=== PATIENT | male | born 1935 | race Caucasian/White ===

== ENCOUNTER 2016-12-15 09:38 | Emergency (ER) | payer OTHER ==
--- NOTE | 2016-12-15 09:54 | EDPHY ---
HPI/HX/ROS/PE/MDM Narrative: CHIEF COMPLAINT: Shortness of breath, bloating. HPI: This patient is an anticoagulated 81 y/o male with history of atrial fibrillation arriving today with his complaining of bloated sensation and shortness of breath for the last day. He states he began feeling tachycardic last , a week and a half ago, with a reported pulse of 108. He visited his welding specialist, and EKG at that time showed atrial fibrillation, for which he was prescribed Amiodarone. A subsequent EKG also showed atrial fibrillation so they instructed him to continue Amiodarone until his next appointment, scheduled for tomorrow. Yesterday afternoon, he reports he began experiencing abdominal bloating and shortness of breath, which he describes as "working harder to get air in". He denies pain or pressure in his chest. He states his symptoms made it difficult from him to sleep, and he did not sleep at all last night. He denies changes in symptoms when lying supine vs. sitting up. He denies other associated symptoms including fever, nausea, vomiting, changes in urine output. He denies history of diabetes. He is compliant with his Xarelto. REVIEW OF SYSTEMS: Aside from elements discussed in the HPI, a comprehensive 10- point review of systems was reviewed and is negative. PMH: Atrial fibrillation with two previous cardioversions - Xarelto; prostate cancer post radiation and ; anemia without obvious cause Prior medical records reviewed including admission 09/01/13 for dyspnea. 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 PHYSICAL EXAM: General:Patient is alert, in no acute distress. ENT:Eyes are normal to inspection. ENT inspection normal. Neck: Normal inspection. Full range of motion. Respiratory:No respiratory distress. Breath sounds normal bilaterally. Cardiovascular: Regular rate and rhythm. Strong peripheral pulses. Normal cap refill. Abdomen:The abdomen is nontender to palpation. There are no peritoneal signs. There are normal bowel sounds. Back: Normal to inspection. No tenderness to palpation. Skin: Normal color. No rash. Warm and dry. Extremities: Normal appearance. Full range of motion. Neuro: Oriented x3. Normal motor function. Normal sensory function. ED Course: This patient is an anticoagulated 81 y/o male with history of atrial fibrillation who presents for evaluation of new onset shortness of breath. He was recently evaluated by his welding specialist for atrial fibrillation and started on Amiodarone. His shortness of breath was not concurrent with his sensation of elevated heart rate. His exam today is unremarkable. His EKG shows sinus rhythm , lung sounds are clear, and he is afebrile. He shows no signs of respiratory distress and is not hypoxemic. IV established, labs drawn including CBC, CHEM, PTPTT, BNP, and Troponin. Chest x-ray ordered. Chest x-ray shows mild CHF, new from previous chest x-ray on 09/13/2014. He is not anemic today, hematocrit within normal limits. 10:[address] Rodriguez, welding specialist. Dr. Rodriguez recommends giving the patient 20mg IV Lasix. Continue Amiodarone. The patient should follow up with Dr. Rodriguez at his scheduled appointment tomorrow. I discussed workup and discharge plan with the patient, and he is comfortable going home and seeing Dr. Rodriguez tomorrow. Specific return precautions given. MDM: This patient presents with dyspnea in the setting of recent recurrent atrial fibrillation and amiodarone use. His workup is largely negative with the exception of CHF/fluid overlaod, evidenced by abnormal CXR and elevated BNP. His vitals are normal, he is not hypoxic and he is in no distress. After discussion with Dr. Rodriguez, the patient can be managed as an outpatient and will follow-up with Cardiology tomorrow as scheduled. He is in NSR at this time. I see no evidence for ACS, PE (patient compliant with Xarelto) or PNA. - Data Points Imaging Results: Imaging Impressions Chest X-Ray 12/15/16 09:52 Impression: 1. Mild fluid overload/CHF suspected. Imaging: I viewed and interpreted images myself Laboratory Results: Laboratory Results 12/15/16 10:05 12/15/16 10:05 12/15/16 12/15/16 12/15/16 10:05 10:05 10:05 WBC 7.39 10^3/uL 10^3/uL (3.80-9.50) RBC 4.18 10^6/uL L 10^6/uL (4.40-6.38) Hgb 14.1 g/dL g/dL (13.7-17.5) Hct 40.4 % % (40.0-51.0) MCV 96.7 fL fL (81.5-99.8) MCH 33.7 pg pg (27.9-34.1) MCHC 34.9 g/dL g/dL (32.4-36.7) RDW 12.5 % % (11.5-15.2) Plt Count 131 10^3/uL L 10^3/uL (150-400) MPV 12.3 fL H fL (8.7-11.7) Neut % (Auto) Not Reported Lymph % (Auto) Not Reported [place] % (Auto) Not Reported Eos % (Auto) Not Reported Baso % (Auto) Not Reported Nucleat RBC Rel Count 0.0 % % (0.0-0.2) Absolute Neuts (auto) Not Reported Absolute Lymphs (auto) Not Reported Absolute Monos (auto) Not Reported Absolute Eos (auto) Not Reported Absolute Basos (auto) Not Reported Absolute Nucleated RBC 0.00 10^3/uL 10^3/uL (0-0.01) Immature Gran % Not Reported Seg Neutrophils % 64 % % Lymphocytes % 14 % % Monocytes % 22 % % Immature Gran # Not Reported Absolute Seg Neuts 4.73 10^/uL 10^/uL (1.70-6.50) Absolute Lymphocytes 1.03 10^3/uL 10^3/uL (1.00-3.00) Absolute Monocytes 1.63 10^3/uL H 10^3/uL (0.30-0.80) RBC/WBC/PLT Morphology NORMAL (NORMAL) Atypical Lymphocytes 1+ H Platelet Estimate DECREASED L (ADEQ) Large Platelets PRESENT H Giant Platelets PRESENT H Smear Review By Pending PT 28.9 SEC H SEC (12.0-15.0) INR 2.69 H (0.83-1.16) APTT 45.2 SEC H SEC (23.0-38.0) Sodium 131 mEq/L L mEq/L (134-144) Potassium 5.0 mEq/L mEq/L (3.5-5.2) Chloride 96 mEq/L L mEq/L (97-110) Carbon Dioxide 25 mEq/l mEq/l (22-31) Anion Gap 10 mEq/L mEq/L (8-16) BUN 25 mg/dL H mg/dL (7-23) Creatinine 1.1 mg/dL mg/dL (0.7-1.3) Estimated GFR > 60 Glucose 97 mg/dL mg/dL (70-100) Calcium 9.1 mg/dL mg/dL (8.5-10.4) Troponin I < 0.012 ng/mL ng/mL (0-0.034) NT-Pro-B Natriuret Pep 1330 pg/mL H pg/mL (0-450) Medications Given: Discontinued Medications Furosemide (Lasix Injection) 20 mg IVP EDNOW ONE Stop: 12/15/16 10:53 Last Admin: 12/15/16 11:02 Dose: 20 mg General Time Seen by Provider: 12/15/16 09:40 Initial Vital Signs: Initial Vital Signs Temperature (C) 36.5 C 12/15/16 09:38 Heart Rate 65 12/15/16 09:38 Respiratory Rate 18 12/15/16 09:38 Blood Pressure 110/58 L 12/15/16 09:38 O2 Sat (%) 94 12/15/16 09:38 O2 Delivery Mode Room Air Allergies/Adverse Reactions: oxycodone HCl [From Percocet] Allergy (Mild, Verified 12/15/16 09:40) Vomiting hydrocodone Allergy (Verified 12/15/16 09:40) Home Medications: Medication Instructions Recorded Amiodarone HCl [Pacerone (*)] 200 mg PO 12/15/16 Bystolic 5 mg (*) 2.5 12/15/16 Levothyroxine [Synthroid 150 mcg 150 mcg PO DAILY06 12/15/16 (*)] Omeprazole 20 mg PO 12/15/16 Rivaroxaban [Xarelto 10mg (*)] 20 mg PO DAILY 12/15/16 Departure - Departure Disposition: Home, Routine, Self-Care Clinical Impression: Congestive heart failure Qualifiers: Congestive heart failure type: unspecified congestive heart failure type Congestive heart failure chronicity: acute Qualified Code(s): I50.9 - Heart failure, unspecified Dyspnea Qualifiers: Dyspnea type: shortness of breath Qualified Code(s): R06.02 - Shortness of breath Condition: Good Instructions: Furosemide (By mouth), Heart Failure (ED) Additional Instructions: 1. Continue Amiodarone as directed. 2. Follow up with Dr. Rodriguez as planned tomorrow. 3. Return to the ED for chest pain, fainting, pronounced shortness of breath, or other worsening of condition. Referrals: Karen Campos MD [Primary Care Provider] - As per Instructions René Rodriguez MD [Medical Doctor] - As per Instructions Report Scribed for: Renard Taylor Report Scribed by: Rosy Kilgore Date of Report: 12/15/16 Time of Report: 09:54 Physician Review and Approval Statement: Portions of this note were transcribed by an ED scribe. I personally performed the history, physical exam, and medical decision making; and confirm the accuracy of the information in the transcribed note.
--- NOTE | 2016-12-15 09:58 | CPEKG ---
Heart Rate: 65 RR Interval: 923 P-R Interval: 236 QRSD Interval: 106 QT Interval: 452 QTC Interval: 470 P Sterling: 76 QRS Sterling: 6 T Wave Sterling: 84 EKG Severity - ABNORMAL ECG - EKG Impression: SINUS RHYTHM EKG Impression: ATRIAL PREMATURE COMPLEX EKG Impression: FIRST DEGREE AV BLOCK Electronically Signed By: Renard Taylor 15-Dec-2016 14:46:39
[2016-12-15 10:28] LABS: ANION GAP 10 mEq/L (8-16); CALCIUM 9.1 mg/dL (8.5-10.4); CARBON DIOXIDE 25 mEq/l (22-31); CHLORIDE 96 mEq/L (97-110); CREATININE 1.1 mg/dL (0.7-1.3); GLOMERULAR FILTRATION RATE > 60; GLUCOSE 97 mg/dL (70-100); SODIUM 131 mEq/L (134-144)
[2016-12-15 10:29] LABS: ADD DIFF? YES; ADD MORPH? NO; ADD SCAN? NO; ATYPICAL LYMPHOCYTE FLAG 0 (0-99); FRAGMENT RBC FLAG 0 (0-99); HEMATOCRIT 40.4 % (40.0-51.0); HEMOGLOBIN 14.1 g/dL (13.7-17.5); LEFT SHIFT FLG 0 (0-99); LIPEMIA HEMOLYSIS FLAG 90 (0-99); MEAN CELL HEMOGLOBIN 33.7 pg (27.9-34.1); MEAN CELL HEMOGLOBIN CONCENTR. 34.9 g/dL (32.4-36.7); MEAN CELL VOLUME 96.7 fL (81.5-99.8); MEAN PLATELET VOLUME 12.3 fL (8.7-11.7); PLATELET CLUMPS FLAG 0 (0-99); PLATELET COUNT 131 10^3/uL (150-400); RED BLOOD CELL COUNT 4.18 10^6/uL (4.40-6.38); RED CELL DISTRIBUTION WIDTH 12.5 % (11.5-15.2)
[2016-12-15 10:32] LABS: INR 2.69 (0.83-1.16); PROTIME(PATIENT) 28.9 SEC (12.0-15.0)
[2016-12-15 10:33] LABS: APTT 45.2 SEC (23.0-38.0)
[2016-12-15 10:39] LABS: TROPONIN I < 0.012 ng/mL (0-0.034)
[2016-12-15] MEDS ORDERED: FUROSEMIDE 20 MG/2 ML VIAL IVP ONE (10:52)
[2016-12-15 10:56] LABS: GIANT PLATELETS PRESENT; LARGE PLATELETS PRESENT; PLATELET ESTIMATE DECREASED (ADEQ)
[2016-12-15 11:31] VITALS: BP 119/75; PULSE 59; RESP 16; TEMP 97.3; O2SAT 91
== END 2016-12-15 11:31 | disposition home or self-care (01) ==
DX: I50.9 Heart failure, unspecified (principal); Z79.01 Long term (current) use of anticoagulants; Z85.46 Personal history of malignant neoplasm of prostate
CPT/HCPCS: 96374

== ENCOUNTER 2016-12-17 15:58 | Inpatient (IN) | payer OTHER ==
--- NOTE | 2016-12-17 16:14 | CPEKG ---
Heart Rate: 58 RR Interval: 1034 P-R Interval: 204 QRSD Interval: 100 QT Interval: 448 QTC Interval: 441 P Hobbs: 4 QRS Hobbs: 16 T Wave Hobbs: 67 EKG Severity - NORMAL ECG - EKG Impression: SINUS RHYTHM Electronically Signed By: Rehan Atkinson 17-Dec-2016 21:19:43
--- NOTE | 2016-12-17 16:22 | EDPHY ---
H & P Time Seen by Provider: 12/17/16 16:04 HPI/ROS: Chief complaint. Shortness of breath, atrial fibrillation HPI. 81-year-old male with shortness of breath. The patient was seen in our emergency department 2 days ago on December 15 for shortness of breath. He was diagnosed with congestive heart failure and given IV Lasix. He saw his delivery table feeder yesterday and was continued on Lasix pills. Last 2 nights he is hardly slept because he has shortness of breath especially at night. He does have some chest pain when lying on his left side only. He has some abdominal distention that is new over the last several days. However no abdominal pain, vomiting, diarrhea, constipation. He has decreased appetite. He also has exertional dyspnea that is new over the last week. No swelling to legs ROS Constitutional. no fever/chills, no weakness Eyes. no problems with vision ENT. no sore throat, no nasal drainage Cardiovascular. Left-sided chest pain when lying down Respiratory. Shortness of breath both with exertion and with lying down at night. No cough Abdominal. no abdominal pain, no nausea/vomiting, no diarrhea . no problems urinating MS. no calf pain/swelling, no neck/back pain, no joint pain Skin. no rash Lymph. no swollen glands Neuro. no headache, no dizziness, no difficulty walking or with speech Past Medical/Surgical History: Past medical history atrial fibrillation, prostate cancer, anemia, appendectomy , cardioversion x2, GERD Social History: , nonsmoker, no alcohol Smoking Status: Former smoker Physical Exam: General Appearance: Alert well-developed male mild distress vital signs significant for O2 saturation room air of 90% Eyes: Pupils equal and round no pallor or injection. ENT, Mouth: Mucous membranes are moist. Respiratory: No retractions. Mild rales in both lung bases Cardiovascular: Regular rate and rhythm. Gastrointestinal: Abdomen is soft and nontender, no masses, bowel sounds normal. Neurological: Awake and alert, sensory and motor exams grossly normal. Skin: Warm and dry, no rashes. Musculoskeletal: Neck is supple nontender. Extremities symmetrical, full range of motion. Psychiatric: Patient is oriented X 3, there is no agitation. Constitutional: Initial Vital Signs Temperature (C) 36.6 C 12/17/16 16:01 Heart Rate 63 12/17/16 16:01 Respiratory Rate 16 12/17/16 16:01 Blood Pressure 115/70 12/17/16 16:01 O2 Sat (%) 93 12/17/16 16:01 O2 Delivery Mode Room Air Allergies/Adverse Reactions: oxycodone HCl [From Percocet] Allergy (Mild, Verified 12/17/16 15:59) Vomiting hydrocodone Allergy (Verified 12/17/16 15:59) Home Medications: Medication Instructions Recorded Amiodarone HCl [Pacerone (*)] 200 mg PO BID 12/17/16 Cholecalciferol Vit D3 [Vitamin D3 1,000 units PO DAILY 12/17/16 (*)] Cyanocobalamin [Vitamin B12 (*)] 1,000 mcg PO DAILY 12/17/16 Furosemide [Lasix 20 MG (*)] 20 mg PO DAILY 12/17/16 Levothyroxine [Synthroid 150 mcg 150 mcg PO HS 12/17/16 (*)] Nebivolol HCl [Bystolic] 2.5 mg PO DAILY@1800 12/17/16 Omeprazole [Prilosec 20 mg] 20 mg PO DAILY@0600 12/17/16 Rivaroxaban [Xarelto] 20 mg PO DAILY@1800 12/17/16 Medical Decision Making - Diagnostics EKG Interpretation: EKG interpreted by me shows normal sinus rhythm with normal interval and axis. QRS is normal there is no significant ST elevation or depression. No arrhythmia. The rate is 58 Imaging Results: Imaging Impressions Abdomen X-Ray 12/17/16 16:47 Impression: 1.No evidence of bowel obstruction. 2. Constipation. Chest X-Ray 12/17/16 16:47 Impression: Worsening early CHF. Chest/Thorax CTA 12/17/16 18:14 Impression: 1. No visible pulmonary embolus. 2. Bilateral pleural effusions with peribronchial thickening and interlobular septal thickening and groundglass opacities consistent with CHF. 3. Nonspecific mildly prominent mediastinal and hilar lymph nodes, for which follow-up chest CT is recommended in 3 months. 4. 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 5. Additional findings as above. Findings discussed with Dr. Rehan Atkinson on December 17, 2016 at 1858 hours. Chest x-ray interpreted by me shows worsening CHF CT angiogram chest for shortness of breath and elevated D-dimer shows no evidence of PE. Some reviewed by me and discussed with Dr. Cheng Procedures: IV normal saline, monitor. Review of recent hospital records ED Course/Re-evaluation: On serial evaluations patient is stable. The patient, his , his daughter and I discussed imaging and lab results. We discussed treatment plan including recommendation for admission. They expressed understanding and agreement I consulted and discussed the case with Dr. Mccurdy, hospitalist, who agrees to the admission Differential Diagnosis: This appears to be worsening congestive heart failure . It was probably precipitated by recent episode of atrial fibrillation. He had an elevated D- dimer but no evidence of PE on his chest CT. No evidence for acute coronary syndrome - Data Points Laboratory Results: Laboratory Results 12/17/16 17:26 12/17/16 17:26 12/17/16 12/17/16 12/17/16 17:26 17: 17:26 WBC 6.43 10^3/uL 10^3/uL (3.80-9.50) RBC 3.85 10^6/uL L 10^6/uL (4.40-6.38) Hgb 13.0 g/dL L g/dL (13.7-17.5) Hct 36.7 % L % (40.0-51.0) MCV 95.3 fL fL (81.5-99.8) MCH 33.8 pg pg (27.9-34.1) MCHC 35.4 g/dL g/dL (32.4-36.7) RDW 12.5 % % (11.5-15.2) Plt Count 109 10^3/uL L 10^3/uL (150-400) MPV 12.5 fL H fL (8.7-11.7) Neut % (Auto) Not Reported Lymph % (Auto) Not Reported [place] % (Auto) Not Reported Eos % (Auto) Not Reported Baso % (Auto) Not Reported Nucleat RBC Rel Count 0.0 % % (0.0-0.2) Absolute Neuts (auto) Not Reported Absolute Lymphs (auto) Not Reported Absolute Monos (auto) Not Reported Absolute Eos (auto) Not Reported Absolute Basos (auto) Not Reported Absolute Nucleated RBC 0.00 10^3/uL 10^3/uL (0-0.01) Immature Gran % Not Reported Seg Neutrophils % 61 % % Band Neutrophils % 1 % % Lymphocytes % 14 % % Monocytes % 23 % % Metamyelocytes % 1 % % Immature Gran # Not Reported Absolute Seg Neuts 3.92 10^/uL 10^/uL (1.70-6.50) Absolute Band Neuts 0.06 10^3/uL 10^3/uL (0.00-0.70) Absolute Lymphocytes 0.90 10^3/uL L 10^3/uL (1.00-3.00) Absolute Monocytes 1.48 10^3/uL H 10^3/uL (0.30-0.80) Absolute Metamyelocyte 0.06 10^3/mL H 10^3/mL (0.00-0.00) RBC/WBC/PLT Morphology NORMAL (NORMAL) Platelet Estimate DECREASED L (ADEQ) Smear Review By Pending PT 25.8 SEC H SEC (12.0-15.0) INR 2.33 H (0.83-1.16) D-Dimer 1.05 ug/mLFEU H ug/mLFEU (0.00-0.50) Sodium 126 mEq/L L mEq/L (134-144) Potassium 4.8 mEq/L mEq/L (3.5-5.2) Chloride 92 mEq/L L mEq/L (97-110) Carbon Dioxide 26 mEq/l mEq/l (22-31) Anion Gap 8 mEq/L mEq/L (8-16) BUN 24 mg/dL H mg/dL (7-23) Creatinine 1.0 mg/dL mg/dL (0.7-1.3) Estimated GFR > 60 Glucose 92 mg/dL mg/dL (70-100) Calcium 8.9 mg/dL mg/dL (8.5-10.4) Troponin I < 0.012 ng/mL ng/mL (0-0.034) NT-Pro-B Natriuret Pep 2260 pg/mL H pg/mL (0-450) Departure - Departure Disposition: [facility] Clinical Impression: Congestive heart failure Qualifiers: Congestive heart failure type: systolic Congestive heart failure chronicity: acute Qualified Code(s): I50.21 - Acute systolic (congestive) heart failure Condition: Fair
[2016-12-17 17:33] LABS: ADD DIFF? YES; ADD MORPH? NO; ADD SCAN? NO; ATYPICAL LYMPHOCYTE FLAG 0 (0-99); FRAGMENT RBC FLAG 0 (0-99); HEMATOCRIT 36.7 % (40.0-51.0); LEFT SHIFT FLG 0 (0-99); LIPEMIA HEMOLYSIS FLAG 90 (0-99); MEAN CELL HEMOGLOBIN 33.8 pg (27.9-34.1); MEAN CELL HEMOGLOBIN CONCENTR. 35.4 g/dL (32.4-36.7); MEAN CELL VOLUME 95.3 fL (81.5-99.8); MEAN PLATELET VOLUME 12.5 fL (8.7-11.7); PLATELET CLUMPS FLAG 0 (0-99); PLATELET COUNT 109 10^3/uL (150-400); RED BLOOD CELL COUNT 3.85 10^6/uL (4.40-6.38); RED CELL DISTRIBUTION WIDTH 12.5 % (11.5-15.2)
[2016-12-17 17:48] LABS: INR 2.33 (0.83-1.16); PROTIME(PATIENT) 25.8 SEC (12.0-15.0)
[2016-12-17 17:57] LABS: ANION GAP 8 mEq/L (8-16); CALCIUM 8.9 mg/dL (8.5-10.4); CARBON DIOXIDE 26 mEq/l (22-31); CHLORIDE 92 mEq/L (97-110); GLOMERULAR FILTRATION RATE > 60; GLUCOSE 92 mg/dL (70-100); POTASSIUM 4.8 mEq/L (3.5-5.2); SODIUM 126 mEq/L (134-144)
[2016-12-17 18:09] LABS: PLATELET ESTIMATE DECREASED (ADEQ)
[2016-12-17 18:10] LABS: TROPONIN I < 0.012 ng/mL (0-0.034)
[2016-12-17] MEDS ORDERED: IOPAMIDOL (ISOVUE 370) 100 ML BTL IV ONE (18:20)
--- NOTE | 2016-12-17 21:41 | PDGENHP ---
History and Physical - Chief Complaint shortness of breath and bloating - History of Present Illness 81 y/o male with history of atrial fibrillation presents to the ED today with shortness of breath and abdominal distention of 2 days duration. He was last seen in the ED 2 days ago on December 15 for shortness of breath and tachycardia , at that time he received IV Lasix with moderate relief. He is followed by Dr. Rodriguez at [facility] cardiology. Over the past 2 days he noted an abdominal distension and an increase in shortness of breath especially while attempting to lay flat at night. He now uses 2 pillows in an attempt to sleep, but he has not been able to in the last 2 days. He denies any chest pain or palpitations. He also states that he has left sided abdominal pain which he attributes to the distention. He notes that he has developed a dry cough as well. He admits to decreased appetite due to feeling of fullness. Patient has been tapering off Amiodarone, however he does not recall the dosages he was taking and believes he may have taken more than he was supposed to. History Information - Allergies/Home Medication List Allergies/Adverse Reactions: oxycodone HCl [From Percocet] Allergy (Mild, Verified 12/17/16 15:59) Vomiting hydrocodone Allergy (Verified 12/17/16 15:59) Home Medications: Amiodarone HCl [Pacerone (*)] 200 mg PO BID 12/17/16 [Last Taken 12/17/16 10:00 200mg] Cholecalciferol Vit D3 [Vitamin D3 (*)] 1,000 units PO DAILY 12/17/16 [Last Taken Unknown] Cyanocobalamin [Vitamin B12 (*)] 1,000 mcg PO DAILY 12/17/16 [Last Taken Unknown ] Furosemide [Lasix 20 MG (*)] 20 mg PO DAILY 12/17/16 [Last Taken 12/17/16 10:00] Levothyroxine [Synthroid 150 mcg (*)] 150 mcg PO HS 12/17/16 [Last Taken ] Nebivolol HCl [Bystolic] 2.5 mg PO DAILY@1800 12/17/16 [Last Taken 12/16/16 t-1] Omeprazole [Prilosec 20 mg] 20 mg PO DAILY@0600 12/17/16 [Last Taken 12/17/16 06 :30] Rivaroxaban [Xarelto] 20 mg PO DAILY@1800 12/17/16 [Last Taken 12/16/16] I have personally reviewed and updated: family history, medical history, social history, surgical history Past Medical History: afib, prostate cancer, anemia, cardioversion, GERD, hypothyroid - Surgical History Additional surgical history: appendectomy, right shoulder surgery with plate, sesimoid bone removal from feet BL - Social History Smoking Status: Former smoker Alcohol Use: None Drug Use: None Review of Systems ROS: 10pt was reviewed & negative except for what was stated in HPI & below Physical Exam Temp Pulse Resp BP Pulse Ox 36.7 C 57 L 19 125/44 H 91 L 12/17/16 20:25 12/17/16 20:25 12/17/16 20:25 12/17/16 20:25 12/17/16 20:25 O2 (L/minute) 2 Constitutional: no apparent distress, appears nourished, not in pain Eyes: PERRL, anicteric sclera, EOMI Ears, Nose, Mouth, Throat: moist mucous membranes, hearing normal, ears appear normal, no oral mucosal ulcers Cardiovascular: regular rate and rhythym, JVD, edema (bilat ankles (trace)), No irregularly irregular, No tachycardia, No bradycardia Respiratory: no respiratory distress, reduced air movement, inspiratory crackles , No expiratory wheeze, No rhonchi Gastrointestinal: normoactive bowel sounds, soft, non-tender abdomen, no palpable masses, distension Genitourinary: no bladder fullness, no bladder tenderness Skin: warm, normal color, no rashes or abrasions, no fluctuance, no induration, No mottled Musculoskeletal: full muscle strength, no muscle tenderness, normal joint ROM, no joint effusions Neurologic: AAOx3, CN II-XII Intact, No facial droop Psychiatric: interacting appropriately, not anxious, not encephalopathic, thought process linear Lymph, Heme, Immunologic: no cervical LAD, no supraclavicular LAD Lab Data & Imaging Review 12/17/16 17:26 12/17/16 17:26 WBC 6.43 10^3/uL (3.80-9.50) 12/17/16 17: RBC 3.85 10^6/uL (4.40-6.38) L 12/17/16 17:26 Hgb 13.0 g/dL (13.7-17.5) L 12/17/16 17:26 Hct 36.7 % (40.0-51.0) L 12/17/16 17:26 MCV 95.3 fL (81.5-99.8) 12/17/16 17:26 MCH 33.8 pg (27.9-34.1) 12/17/16 17: MCHC 35.4 g/dL (32.4-36.7) 12/17/16 17: RDW 12.5 % (11.5-15.2) 12/17/16 17: Plt Count 109 10^3/uL (150-400) L 12/17/16 17: MPV 12.5 fL (8.7-11.7) H 12/17/16 17:26 Neut % (Auto) Not Reported 12/17/16 17:26 Lymph % (Auto) Not Reported 12/17/16 17:26 [place] % (Auto) Not Reported 12/17/16 17:26 Eos % (Auto) Not Reported 12/17/16 17:26 Baso % (Auto) Not Reported 12/17/16 17:26 Nucleat RBC Rel Count 0.0 % (0.0-0.2) 12/17/16 17:26 Absolute Neuts (auto) Not Reported 12/17/16 17:26 Absolute Lymphs (auto) Not Reported 12/17/16 17:26 Absolute Monos (auto) Not Reported 12/17/16 17:26 Absolute Eos (auto) Not Reported 12/17/16 17:26 Absolute Basos (auto) Not Reported 12/17/16 17:26 Absolute Nucleated RBC 0.00 10^3/uL (0-0.01) 12/17/16 17:26 Immature Gran % Not Reported 12/17/16 17:26 Seg Neutrophils % 61 % 12/17/16 17:26 Band Neutrophils % 1 % 12/17/16 17:26 Lymphocytes % 14 % 12/17/16 17:26 Monocytes % 23 % 12/17/16 17:26 Metamyelocytes % 1 % 12/17/16 17:26 Immature Gran # Not Reported 12/17/16 17:26 Absolute Seg Neuts 3.92 10^/uL (1.70-6.50) 12/17/16 17:26 Absolute Band Neuts 0.06 10^3/uL (0.00-0.70) 12/17/16 17:26 Absolute Lymphocytes 0.90 10^3/uL (1.00-3.00) L 12/17/16 17:26 Absolute Monocytes 1.48 10^3/uL (0.30-0.80) H 12/17/16 17:26 Absolute Metamyelocyte 0.06 10^3/mL (0.00-0.00) H 12/17/16 17:26 RBC/WBC/PLT Morphology NORMAL (NORMAL) 12/17/16 17:26 Platelet Estimate DECREASED (ADEQ) L 12/17/16 17:26 PT 25.8 SEC (12.0-15.0) H 12/17/16 17:26 INR 2.33 (0.83-1.16) H 12/17/16 17:26 D-Dimer 1.05 ug/mLFEU (0.00-0.50) H 12/17/16 17:26 Sodium 126 mEq/L (134-144) L 12/17/16 17:26 Potassium 4.8 mEq/L (3.5-5.2) 12/17/16 17:26 Chloride 92 mEq/L (97-110) L 12/17/16 17:26 Carbon Dioxide 26 mEq/l (22-31) 12/17/16 17:26 Anion Gap 8 mEq/L (8-16) 12/17/16 17:26 BUN 24 mg/dL (7-23) H 12/17/16 17:26 Creatinine 1.0 mg/dL (0.7-1.3) 12/17/16 17:26 Estimated GFR > 60 12/17/16 17:26 Glucose 92 mg/dL (70-100) 12/17/16 17:26 Calcium 8.9 mg/dL (8.5-10.4) 12/17/16 17:26 Troponin I < 0.012 ng/mL (0-0.034) 12/17/16 17:26 NT-Pro-B Natriuret Pep 2260 pg/mL (0-450) H 12/17/16 17:26 Imaging Review: cta chest 1. No visible pulmonary embolus. 2. Bilateral pleural effusions with peribronchial thickening and interlobular septal thickening and groundglass opacities consistent with CHF. 3. Nonspecific mildly prominent mediastinal and hilar lymph nodes, for which follow-up chest CT is recommended in 3 months. 4. 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 Visualized and Interpreted Chest x-ray results: Yes Chest X-Ray results: effusion, other (pulm congestion c/w chf) Visualized and Interpreted EKG results: Yes EKG Interpretation: Positive for: normal sinsus rhythm (58 bpm). Negative for: ST elevation, ST depression Assessment & Plan Assessment: 81 y/o with history of Afib presenting with #acute heart failure (suspect diastolic in etiology) -IV lasix -Dr. Rodriguez to consult in the morning -will defer repeating an echo since the patient tells me he has one recently #hypervolemic hyponatremia -fluid restrict and monitor #suspected ascites likely cardiac in etiology -send LFTs #hilar lymphadenopathy on chest ct -recommend 3 month followup
[2016-12-17] MEDS: AMIODARONE HCL 200 MG TAB PO SCH (22:54)
[2016-12-17] MEDS: FUROSEMIDE 20 MG/2 ML VIAL IVP SCH (22:55)
[2016-12-17] MEDS: LEVOTHYROXINE 150 MCG TAB PO SCH (22:55)
[2016-12-18 05:12] LABS: ADD DIFF? YES; ADD MORPH? NO; ADD SCAN? NO; ATYPICAL LYMPHOCYTE FLAG 0 (0-99); FRAGMENT RBC FLAG 0 (0-99); HEMATOCRIT 35.6 % (40.0-51.0); HEMOGLOBIN 12.6 g/dL (13.7-17.5); LEFT SHIFT FLG 0 (0-99); LIPEMIA HEMOLYSIS FLAG 90 (0-99); MEAN CELL HEMOGLOBIN 33.5 pg (27.9-34.1); MEAN CELL HEMOGLOBIN CONCENTR. 35.4 g/dL (32.4-36.7); MEAN CELL VOLUME 94.7 fL (81.5-99.8); MEAN PLATELET VOLUME 12.4 fL (8.7-11.7); PLATELET CLUMPS FLAG 0 (0-99); PLATELET COUNT 112 10^3/uL (150-400); RED BLOOD CELL COUNT 3.76 10^6/uL (4.40-6.38); RED CELL DISTRIBUTION WIDTH 12.6 % (11.5-15.2)
[2016-12-18 05:26] LABS: ALANINE AMINOTRANSFERASE 84 IU/L (21-72); ALBUMIN 3.6 g/dL (3.5-5.0); ALKALINE PHOSPHATASE 81 IU/L (38-126); ANION GAP 11 mEq/L (8-16); ASPARTATE AMINOTRANSFERASE 41 IU/L (17-59); BILIRUBIN,TOTAL 1.6 mg/dL (0.1-1.4); CALCIUM 8.5 mg/dL (8.5-10.4); CARBON DIOXIDE 26 mEq/l (22-31); CHLORIDE 96 mEq/L (97-110); CREATININE 0.9 mg/dL (0.7-1.3); GLOMERULAR FILTRATION RATE > 60; GLUCOSE 85 mg/dL (70-100); SODIUM 133 mEq/L (134-144)
[2016-12-18 05:55] LABS: LARGE PLATELETS PRESENT; PLATELET ESTIMATE DECREASED (ADEQ)
[2016-12-18] MEDS: PANTOPRAZOLE SODIUM 40 MG TAB PO SCH (07:55)
[2016-12-18] MEDS: AMIODARONE HCL 200 MG TAB PO SCH ×2 (09:13→21:19)
[2016-12-18] MEDS: CYANO/VITAMIN B12 1000 MCG TAB PO SCH (09:13)
[2016-12-18] MEDS: FUROSEMIDE 20 MG/2 ML VIAL IVP SCH ×2 (09:13→14:52)
[2016-12-18] MEDS: CHOLECALCIFEROL VIT D3 1,000 UNITS TAB PO SCH (09:13)
--- NOTE | 2016-12-18 12:13 | GCON ---
[f rep st] CONSULTATION CARDIOLOGY CONSULTATION. DATE OF CONSULTATION: 12/18/2016 REFERRING PHYSICIAN: Johnathan Mccurdy DO REASON FOR CONSULTATION: New onset of congestive heart failure, atrial fibrillation, and lconxqmz-ur-wsgozz aortic insufficiency. HISTORY OF PRESENT ILLNESS: The patient is a pleasant 81-year-old gentleman well-known to my cardiology practice at [facility]. He had presented to our office last Friday with complaints of an irregular heartbeat. He was found to be in atrial fibrillation with rapid ventricular response. He does have a known history of paroxysmal atrial fibrillation, and remains chronically anticoagulated with Xarelto 20 mg daily. He was on rate control medication with beta inge of Bystolic 2.5 mg once daily. He was initiated on amiodarone 400 mg p.o. b.i.d. He ultimately converted to sinus rhythm. Over the course of the weekend, he noticed increasing shortness of breath, dyspnea, as well as paroxysmal nocturnal dyspnea and orthopnea, as well as abdominal bloating and fullness, prompting him to seek medical attention. In the emergency room, he was found to have evidence of some small effusions and an elevated BNP. He was given IV dose of Lasix, felt better, and was discharged home with plan to follow up in our office. He was seen in our office and was feeling well on Friday December 16, 2016. However, by Friday he began noticing increasing abdominal fullness and bloating, prompting him to contact our office, at which point, we directed him to the emergency room for further evaluation. He did undergo an echocardiogram in my office on FridayDecember 16. Echocardiogram demonstrated normal left ventricular function with LVEF of 60% to 65%. There was increase in left ventricular cavity dilatation, and his LV cavity is now at the upper limits of normal, with left ventricular internal diastolic dimension of 5.5 cm. His aortic insufficiency was moderate and is now cnybygqh-wp-rizujf. He does have rnsh-tr-qopynvsb mitral regurgitation and moderate pulmonary hypertension, with RV systolic pressure between 50 and 60 mmHg. His inferior vena cava was dilated at 2.8 cm without collapse, consistent with elevated right atrial pressure of 15 mmHg. He also had a pericardial effusion, which was new compared to previous echo in June 2016. There is no evidence of tamponade. His ascending aorta was dilated at 4.1 cm , which is essentially unchanged compared to the previous study. The patient presented to the ER yesterday afternoon, and was admitted to the hospitalist service. He has undergone workup including abdominal films demonstrating no acute findings. Chest x-ray demonstrated increasing interstitial markings and evidence of increasing pulmonary edema, as compared to previous chest x-ray done on November. He underwent CT of the chest secondary to elevated D-dimer. He has been compliant with his Xarelto. There was no evidence of PE, but did demonstrate bilateral pleural effusions and peribronchial thickening, and ascending aorta with consistent with our echocardiogram at 4.1 cm. Telemetry demonstrates maintenance of sinus rhythm, and he is currently at 57 beats per minute, resting comfortably. He is currently on amiodarone 200 mg p.o. b.i.d. Currently, at the time of my exam, he is resting comfortably without complaint. PAST MEDICAL HISTORY: 1. Paroxysmal atrial fibrillation. 2. Moderate ascending aortic root dilatation at 4.1 cm. 3. Pfgjttwd-xh-mkkvmm aortic insufficiency, moderate pulmonary hypertension. 4. Hypothyroidism. 5. Status post prostate cancer. 6. Iron-deficiency anemia. MEDICATIONS ON ADMISSION: 1. Xarelto 20 mg once daily. 2. Bystolic 2.5 mg daily. 3. Amiodarone 200 mg p.o. b.i.d. 4. Levothyroxine 150 mcg daily. 5. Furosemide 20 mg daily. 6. Prilosec 20 mg daily. 7. B12 1000 units daily. ALLERGIES TO MEDICATIONS: Oxycodone and hydrocodone. SOCIAL HISTORY: He is a nonsmoker. He is physically active. He does have a remote history of smoking. He smoked for approximately 12 years, quit in August 1968. Drinks approximately 2 alcoholic beverages per day. FAMILY HISTORY: Noncontributory. EXAM: GENERAL: He is awake, alert, oriented, appropriate, in no apparent distress. VITAL SIGNS: Blood pressure is 106/61; heart rate is 59, in sinus rhythm; respiratory rate of 20; oxygen saturation 91% on 2 L. NECK: There is no evidence of JVP or carotid bruits. LUNGS: Clear to auscultation bilaterally. CARDIAC: S1, S2. Regular. He does have a 1/6 soft diastolic murmur at the right upper sternal border. ABDOMEN: Soft, nontender. There is no evidence of ascites. Normal bowel sounds. EXTREMITIES: He has no evidence of cyanosis, clubbing, or edema. DATA: White blood cell count 5.91, hemoglobin 12.6, hematocrit 35.6, platelet count 112. D-dimer was elevated at 1.05. Sodium 133, potassium 4.0, chloride 96, bicarb 26, BUN 20, creatinine 0.9. AST 41, ALT 84, alkaline phosphatase 81. Troponin negative at less than 0.012. I-mkkovtyc-dtfDWP 2260. TSH 0.600. ECG demonstrates sinus rhythm at 58 beats per minute, with normal intervals, normal axis. Echocardiogram done in my office yesterday demonstrates LVEF of 60% to 65%. Borderline dilated left ventricular cavity at 5.5 cm. Pxohsvst-nu-wasgev aortic insufficiency. Tjvr-zk-qnxpfqtw mitral insufficiency. Moderate pulmonary hypertension with RV systolic pressure of 50 to 60 mmHg. Mild tricuspid regurgitation. Dilated IVC at 2.8 cm without collapse, consistent with right atrial pressure of at least 15 mmHg. Small pericardial effusion without evidence of tamponade. CONCLUSION: 1. New onset of congestive heart failure, with preserved left ventricular function. 2. Opyisycn-mt-ofdfyy aortic insufficiency. 3. Atrial fibrillation with rapid ventricular response. 4. Bilateral pleural effusions. 5. Increased abdominal distention and bloating. The patient is a pleasant 81-year-old gentleman, who presented last week with atrial fibrillation with rapid ventricular response that converted to sinus rhythm with amiodarone loading, who has continued to have complaints of paroxysmal nocturnal dyspnea, orthopnea, shortness of breath, dyspnea on exertion, and abdominal bloating without evidence of lower extremity edema. I think these findings may be secondary to an episode of atrial fibrillation with rapid ventricular response coupled with progression of his aortic insufficiency , which is now exvbwrlm-ma-wqtkck. His echocardiographic findings are consistent with volume overload. RECOMMENDATIONS: 1. Continue diuretic therapy. 2. Continue amiodarone 200 mg p.o. b.i.d. 3. Continue Xarelto 20 mg daily 4. Recommend patient remains in hospital for another 24 hours for increased diuresis. 5. Will require outpatient nuclear stress test once euvolemic and asymptomatic. 6. Will continue to follow along with the patient's care. 45 minutes spent coordinating care. /[id number]/MODL MTDD
--- NOTE | 2016-12-18 14:23 | HOSPPROG ---
Hospitalist Progress Note Assessment/Plan: # acute diastolic HF- has responded well to IV diuresis overnight- preserved EF on recent outpt ECHO- oxygen saturations 87% on RA CT chest (personally reviewed and interpreted) shows bilateral effusions and pulmonary edema- creatinine 0.9 this am - continue IV lasix today - cont BP control # Atrial fibrillation with RVR - pt converted to sinus overnight - cont Pradaxa - cont amiodarone # HTN -controlled on Bystolic # Hypothyroidism - cont synthroid # proph - on pradaxa # diet - cont cardiac # dispo - > 2MN as will require ongoing IV diuresis I have discussed the case with Cardiology - we will continue IV diuresis today - pt responding well. Subjective: breathing so miuch more comfortable Objective: Vital Signs Temp Pulse Resp BP Pulse Ox 36.5 C 60 16 116/60 91 L 12/18/16 11:52 12/18/16 11:52 12/18/16 11:52 12/18/16 11:52 12/18/16 11:52 Laboratory Results 12/18/16 04:25 12/18/16 04:25 12/17/16 12/18/16 12/19/16 05:59 05:59 05:59 Intake Total 640 Output Total 2100 1350 Balance -1460 -1350 PT 25.8 SEC (12.0-15.0) H 12/17/16 17:26 INR 2.33 (0.83-1.16) H 12/17/16 17:26 - Physical Exam Constitutional: appears nourished Eyes: anicteric sclera Ears, Nose, Mouth, Throat: moist mucous membranes Cardiovascular: regular rate and rhythym, systolic murmur Respiratory: no respiratory distress, inspiratory crackles Gastrointestinal: normoactive bowel sounds, soft, non-tender abdomen Genitourinary: no bladder fullness Skin: warm, normal color Musculoskeletal: No asymmetric calves Neurologic: AAOx3 Psychiatric: interacting appropriately, not anxious Lymph, Heme, Immunologic: no cervical LAD ICD10 Worksheet Patient Problems: Problems Problem Status Onset Congestive heart failure Acute Anemia Acute
[2016-12-18] MEDS: NEBIVOLOL HCL 5 MG TAB PO SCH (17:23)
[2016-12-18] MEDS: RIVAROXABAN 20 MG TAB PO SCH (17:24)
[2016-12-18] MEDS: LEVOTHYROXINE 150 MCG TAB PO SCH (21:19)
[2016-12-19 05:26] LABS: ANION GAP 8 mEq/L (8-16); CALCIUM 8.5 mg/dL (8.5-10.4); CARBON DIOXIDE 28 mEq/l (22-31); CHLORIDE 96 mEq/L (97-110); CREATININE 0.9 mg/dL (0.7-1.3); GLOMERULAR FILTRATION RATE > 60; GLUCOSE 86 mg/dL (70-100); POTASSIUM 3.7 mEq/L (3.5-5.2); SODIUM 132 mEq/L (134-144)
[2016-12-19] MEDS: PANTOPRAZOLE SODIUM 40 MG TAB PO SCH (07:32)
--- NOTE | 2016-12-19 08:13 | SOAPPROG ---
SOAP Progress Note Assessment/Plan: Assessment: Cardiology ([facility]) 1. Acute diastolic CHF exacerbation in the setting of recent afib and apparent worsening AI. Patient has diuresed net neg 2895 ml since admission on furosemide 20 mg ivp bid. Weight is down 3.6 kg. 2. Paroxysmal atrial fibrillation s/p 4-5 day bout preceding hospitalization. Patient remains on amiodarone. He is chronically anticoagulated with Xarelto. He has maintained NSR throughout the hospitalization. 3. Progressive aortic valve insufficiency, now moderate-severe, with LVEDD at ULN. Unclear if this is cause or effect of fluid overload. 4. New anemia, possibly hemodilution, however has had issues with anemia in the past requiring iron supplementation. 5. Hypothyroidism. 6. Hyponatremia. Plan: 1. Start KlorCon 20 mEq/d. 2. Continue free water restriction of 1500 ml/d. 3. Continue Lasix ivp this am however if discharged would transition to oral 40 mg once daily as patient is nearing euvolemia. 4. Continue amiodarone 200 mg bid, Xarelto 20 mg/d, and Bystolic 2.5 mg/d. 5. Close outpatient follow up. 12/19/16 08:44 Subjective: Feeling much better. Quality of breath and abdominal distention are significantly improved. He continues to have low sats on supplemental O2. Objective: Vital Signs Temp Pulse Resp BP Pulse Ox 35.6 C L 58 L 14 92/57 L 92 12/19/16 04:00 12/19/16 04:00 12/19/16 04:00 12/19/16 04:00 12/19/16 04:00 Laboratory Results 12/19/16 04:27 12/18/16 12/19/16 12/20/16 05:59 05:59 05:59 Intake Total 1610 Output Total 1145 Balance 465 PT 25.8 SEC (12.0-15.0) H 12/17/16 17:26 INR 2.33 (0.83-1.16) H 12/17/16 17:26 - Time Spent With Patient Time Spent With Patient: 40 minutes spent coordinating care, physical exam, and documentation. Physical Exam - Physical Exam General Appearance: WD/WN, alert, no apparent distress Respiratory: chest non-tender, normal breath sounds, crackles Cardiac/Chest: normal peripheral pulses, regular rate, rhythm Peripheral Pulses: 2+: dorsalis-pedis (R), dorsalis-pedis (L) Abdomen: normal bowel sounds, non-tender, soft Extremities: No swelling Neuro/Psych: no motor/sensory deficits, alert, normal mood/affect, oriented x 3 ICD10 Worksheet Patient Problems: Problems Problem Status Onset Chronic Disease Mgmt/Transitional Care Acute Congestive heart failure Acute Anemia Acute
[2016-12-19] MEDS: FUROSEMIDE 20 MG/2 ML VIAL IVP SCH ×2 (08:33→14:59)
[2016-12-19] MEDS: AMIODARONE HCL 200 MG TAB PO SCH ×2 (08:33→20:49)
[2016-12-19] MEDS: CYANO/VITAMIN B12 1000 MCG TAB PO SCH (08:33)
[2016-12-19] MEDS: CHOLECALCIFEROL VIT D3 1,000 UNITS TAB PO SCH (08:39)
[2016-12-19] MEDS: POTASSIUM CL 20 MEQ TAB PO SCH (09:32)
[2016-12-19] MEDS ORDERED: POLYETHYLENE GLYCOL 3350 17 GM PKT PO ONE (12:00)
--- NOTE | 2016-12-19 16:19 | HOSPPROG ---
Hospitalist Progress Note Assessment/Plan: * Acute on chronic diastolic CHF -still needs more diuresis - continue IV lasix * Afib -amiodarone, Xarelto * HTN -Bystolic * Mediastinal/hilar LAD -follow-up CT chest 3 months Subjective: no complaints. Objective: Vital Signs Temp Pulse Resp BP Pulse Ox 34.9 C L 55 L 18 122/62 H 94 12/19/16 12:00 12/19/16 12:00 12/19/16 12:00 12/19/16 12:00 12/19/16 12:00 Laboratory Results 12/19/16 04:27 12/18/16 12/19/16 12/20/16 05:59 05:59 05:59 Intake Total 1610 200 Output Total 1145 1225 Balance 465 -1025 PT 25.8 SEC (12.0-15.0) H 12/17/16 17:26 INR 2.33 (0.83-1.16) H 12/17/16 17:26 d/w Martinez Carrillo employment consultant - one more day inpatient for diuresis CTA chest - no PE, + CHF, + LAD - Physical Exam Constitutional: no apparent distress, appears nourished, not in pain Cardiovascular: regular rate and rhythym, no murmur, rub, or gallop Respiratory: no respiratory distress, no rales or rhonchi, clear to auscultation Gastrointestinal: normoactive bowel sounds, soft, non-tender abdomen, no palpable masses Skin: no rashes or abrasions, no fluctuance, no induration Neurologic: AAOx3, sensation intact bilaterally Psychiatric: interacting appropriately, not anxious, not encephalopathic, thought process linear ICD10 Worksheet Patient Problems: Problems Problem Status Onset Chronic Disease [facility]/Transitional Care Acute Congestive heart failure Acute Anemia Acute
[2016-12-19] MEDS: NEBIVOLOL HCL 5 MG TAB PO SCH (17:45)
[2016-12-19] MEDS: RIVAROXABAN 20 MG TAB PO SCH (17:46)
[2016-12-19] MEDS: LEVOTHYROXINE 150 MCG TAB PO SCH (20:49)
[2016-12-20 05:58] LABS: ANION GAP 10 mEq/L (8-16); CALCIUM 8.4 mg/dL (8.5-10.4); CARBON DIOXIDE 28 mEq/l (22-31); CHLORIDE 97 mEq/L (97-110); GLOMERULAR FILTRATION RATE > 60; GLUCOSE 86 mg/dL (70-100); SODIUM 135 mEq/L (134-144)
--- NOTE | 2016-12-20 08:47 | PDCARPN ---
Cardiology Progress Note Chief Complaint: Mr. Brooke is feeling well. No complaints. Remains in NSR on Tele. BP is low but no complaints. He is neg over 3.4 L and weight is down over 3 Kg. No complaints of adominal fullness. No edema. Assessment/Plan: Assessment: 1. AFib with RVR, now in NSR with Amiodarone 2. Moderate to severe AI with LV dimension at upper limit normal 3. Diastolic CHF 4. Hyponatremia 5. Anemia Plan: 1. I thnk he is stable for discharge home 2. Home with Lasix 40 mg daily 3. Decrease Amiodarone to 200 mg daily 4. Continue Eliquis 5 mg bid 5. Continue Bystolic 2.5 mg daily 6. Free water restriction to 1.5 L 7. I am arranging Follow up with me for next week with Lab work prior to appt. 12/20/16 08:46 12/20/16 08:47 Time Spent With Patient: 20 min Objective: Vital Signs (8 Hrs) Temp Pulse Resp BP Pulse Ox 12/20/16 08:00 36.6 C 52 L 19 91/42 L 92 12/20/16 03:32 36.3 C 50 L 18 98/51 L 90 L Intake/Output (24 Hrs) 12/19/16 12/20/16 12/21/16 05:59 05:59 05:59 Intake Total 1610 1300 Output Total 1145 1900 Balance 465 -600 Intake: Oral (ml) 1610 1300 Output: Urine (ml) 1145 1900 Toilet 325 Urinal 1145 1575 Other: Weight 75.1 kg 73.8 kg Intake Quantity Yes Yes Sufficient Number of Voids Toilet 1 Urinal 2 Number of Stools Toilet 1 Result Diagrams: 12/18/16 04:25 12/20/16 04:22 - Physical Exam Constitutional: WDWN Ears, Nose, Mouth, Throat: moist mucous membranes Cardiovascular: regular rate and rhythm Respiratory: clear to auscultate bilat Gastrointestinal: normoactive bowel sounds Musculoskeletal: no muscular tenderness Neurologic: AAOx3, CN II-XII grossly intact Psychiatric: cooperative, interactive, following commands ICD10 Worksheet Patient Problems: Problems Problem Status Onset Chronic Disease Mgmt/Transitional Care Acute Congestive heart failure Acute Anemia Acute
[2016-12-20] MEDS: CYANO/VITAMIN B12 1000 MCG TAB PO SCH (09:02)
[2016-12-20] MEDS: AMIODARONE HCL 200 MG TAB PO SCH (09:02)
[2016-12-20] MEDS: PANTOPRAZOLE SODIUM 40 MG TAB PO SCH (09:02)
[2016-12-20] MEDS: FUROSEMIDE 20 MG/2 ML VIAL IVP SCH ×2 (09:02→10:15)
[2016-12-20] MEDS: CHOLECALCIFEROL VIT D3 1,000 UNITS TAB PO SCH (09:02)
[2016-12-20] MEDS: POTASSIUM CL 20 MEQ TAB PO SCH (09:02)
[2016-12-20 12:10] VITALS: BP 99/60; PULSE 61; RESP 18; TEMP 97; O2SAT 92
--- NOTE | 2016-12-20 16:56 | GDS ---
[f rep st] DISCHARGE SUMMARY DISCHARGE DIAGNOSES: 1. Acute on chronic diastolic congestive heart failure. 2. Atrial fibrillation. 3. Hypertension. 4. Mediastinal and hilar lymphadenopathy. HISTORY: The patient is an 81-year-old male who presented with shortness of breath and abdominal di stention, especially while lying flat at night. CT angiogram of the chest was negative for PE but m ore consistent with congestive heart failure. He had a recent outpatient echocardiogram that showed diastolic dysfunction. He was diuresed with IV Lasix and did well. We were able to wean him off o xygen at the time of hospital discharge. Lasix will be switched to oral 40 mg p.o. daily. DISCHARGE MEDICATIONS: Please see computer's record for full detailed list. 1. New medication: Lasix 40 mg p.o. daily. 2. Potassium 20 mEq p.o. daily. 3. Amiodarone decreased to 200 mg p.o. daily. ADDITIONAL DISCHARGE INSTRUCTIONS: 1. Follow up CT scan of the chest in 3 months for enlarged mediastinal and hilar lymphadenopathy fo llowup. 2. CHF education, including daily weights. 3. Follow up with Dr. René Rodriguez of Cardiology as directed. Greater than 30 minutes' time was spent arranging this discharge. Patient seen and examined by me david sanchez the day of discharge. /[id number]/MODL
== END 2016-12-20 12:35 | disposition home or self-care (01) | DRG 292 ==
LOC: INTOOBSV 18:18 → F2W 20:21 → OBSVTOIN 12-18 15:36
PROVIDERS: ADMIT Family Medicine; ATTEND Family Medicine
DX: I50.33 Acute on chronic diastolic (congestive) heart failure (principal); E87.1 Hypo-osmolality and hyponatremia; I48.0 Paroxysmal atrial fibrillation; R59.1 Generalized enlarged lymph nodes; I35.1 Nonrheumatic aortic (valve) insufficiency; D64.9 Anemia, unspecified; E03.9 Hypothyroidism, unspecified; I10 Essential (primary) hypertension; Z79.01 Long term (current) use of anticoagulants; Z85.46 Personal history of malignant neoplasm of prostate; Z87.891 Personal history of nicotine dependence
CPT/HCPCS: G0378; Q9967

== ENCOUNTER → 2017-04-08 | Outpatient (CLI) | payer OTHER | LOC: FIMAGING 09:46 | PROVIDERS: ATTEND Internal Medicine | DX: R59.1 Generalized enlarged lymph nodes (principal); I77.810 Thoracic aortic ectasia; Z87.891 Personal history of nicotine dependence ==

== ENCOUNTER → 2017-10-14 | Outpatient (CLI) | payer OTHER | LOC: BMCIMAGING 10:38 | PROVIDERS: ATTEND Internal Medicine Cardiovascular Disease | DX: Z51.81 Encounter for therapeutic drug level monitoring (principal); Z79.899 Other long term (current) drug therapy ==

== ENCOUNTER → 2017-12-09 | Outpatient (CLI) | payer OTHER | LOC: BMCIMAGING 13:43 | PROVIDERS: ATTEND Orthopaedic Surgery | DX: M25.561 Pain in right knee (principal) ==

== ENCOUNTER → 2017-12-18 | Outpatient (CLI) | payer OTHER | LOC: FIMAGING 08:55 | PROVIDERS: ATTEND Orthopaedic Surgery | DX: Z01.818 Encounter for other preprocedural examination (principal); M17.11 Unilateral primary osteoarthritis, right knee ==

== ENCOUNTER 2018-01-12 09:17 | Observation (INO) | payer OTHER ==
--- NOTE | 2018-01-12 06:36 | PDHPUP ---
History & Physical Update H&P update statement: This history and physical update is based on an assessment of the patient which was completed after admission or registration (within 24 hours), but prior to the surgery/procedure. H&P update: no change in patient's condition since H&P completed
--- NOTE | 2018-01-12 06:37 | PDIAF ---
- Diagnosis Diagnosis: right knee djd Code Status: Full Code - Medication Management Discharge Medications: Medications to Continue on Transfer Cyanocobalamin [Vitamin B12 (*)] 1,000 mcg PO DAILY 12/17/16 [Last Taken Unknown ] Omeprazole [Prilosec 20 mg] 20 mg PO DAILY@0600 12/17/16 [Last Taken 12/17/16 06 :30] Rivaroxaban [Xarelto] 20 mg PO DAILY@1800 12/17/16 [Last Taken 12/16/16] Amiodarone HCl [Pacerone (*)] 200 mg PO DAILY #30 tab 12/20/16 [Last Taken Unknown] Cholecalciferol Vit D3 [Vitamin D3 2000 units tab (OTC)] 2,000 units PO DAILY [Last Taken Unknown] Levothyroxine [Synthroid 125 mcg (*)] 125 mcg PO DAILY@02 12/28/17 [Last Taken Unknown] Discharge Medications: Refer to the Discharge Home Medication list for PRN reason. - Orders Services needed: Physical Therapy Diet Recommendation: no restrictions on diet Diet Texture: Regular Texture Diet Activity/Weight Bearing Restrictions: wbat. range of motion as tolerated. keep dressing in place. if dressing becomes saturated change daily. f/u at two weeks. seek attn for increasing pain, drainage, swelling or other focal complaint - Follow Up Care Current Providers and Referrals: Karen Campos MD [Primary Care Provider] -
[~2018-01-12 09:17] MED LIST: CALCIUM CHLORIDE 1 GM/10 ML INJ ONE; ROPIVACAINE 0.2% 80 MG, EPINEPHrine 0.2 MG, KETOROLAC TROMETHAMINE 30 MG, morphINE 10 M... IU ONE; THROMBIN (BOVINE) 5,000 UNIT VIAL TP ONE; TRANEXAMIC ACID 1,000 MG in NS 100 ML IV ONE; ceFAZolin 1 GM VIAL ONE
[2018-01-12] MEDS ORDERED: ceFAZolin 2 GM/SWFI 2 GM/20 ML SYR IVP ONE (09:44)
[2018-01-12] MEDS ORDERED: FAMOTIDINE 20 MG TAB PO ONE (09:44)
[2018-01-12] MEDS ORDERED: ACETAMINOPHEN 325 MG TAB PO ONE (09:44)
[2018-01-12] MEDS ORDERED: LIDOCAINE 1% 2 ML INJ ID PRN (09:45)
[2018-01-12] MEDS ORDERED: LR 1,000 ML IV ONE (09:45)
[2018-01-12] MEDS ORDERED: ceFAZolin 1 GM/5 ML SYR ONE (10:36)
[2018-01-12] MEDS ORDERED: THROMBIN (BOVINE) 5,000 UNIT VIAL TP ONE ×2 (10:36→12:03)
[2018-01-12] MEDS ORDERED: CALCIUM CHLORIDE 1 GM/10 ML INJ ONE (10:36)
--- NOTE | 2018-01-12 11:18 | PDANEPAE ---
ANE Past Medical History - Cardiovascular History Hx Hypertension: No Hx Arrhythmias: Yes Hx Chest Pain: No Hx Coronary Artery / Peripheral Vascular Disease: No Hx CHF / Valvular Disease: Yes Hx Palpitations: No Cardiovascular History Comment: HX moderate/severe aortic insufficiency, mitral regurgitation - Pulmonary History Hx COPD: No Hx Asthma/Reactive Airway Disease: No Hx Recent Upper Respiratory Infection: No Hx Oxygen in Use at Home: No Hx Sleep Apnea: No Sleep Apnea Screening Result - Last Documented: Positive - Neurologic History Hx Cerebrovascular Accident: No Hx Seizures: No Hx Dementia: No - Endocrine History Hx Diabetes: No Hypothyroid: No Hyperthyroid: No Obesity: no - Renal History Hx Renal Disorders: No - Liver History Hx Hepatic Disorders: No - Neurological & Psychiatric Hx Hx Neurological and Psychiatric Disorders: No - Cancer History Hx Cancer: Yes Cancer History Comment: PROSTATE - Congenital Disorder History Hx Congenital Disorders: No - GI History Hx Gastrointestinal Disorders: Yes Gastrointestinal History Comment: BARRETS ESOPHAGUS - Other Health History Other Health History: RIGHT KNEE ABRASION - Chronic Pain History Chronic Pain: No - Surgical History Prior Surgeries: COLLAR BONE REPAIR ANE Review of Systems Review of Systems: - Exercise capacity METS (RN): 6 METS ANE Patient History - Allergies Allergies/Adverse Reactions: oxycodone HCl [From Percocet] Allergy (Mild, Verified 12/17/16 15:59) Vomiting hydrocodone Allergy (Verified 12/17/16 15:59) - Home Medications Home Medications: Cyanocobalamin [Vitamin B12 (*)] 1,000 mcg PO DAILY 12/17/16 [Last Taken ] Omeprazole [Prilosec 20 mg] 20 mg PO DAILY@0600 12/17/16 [Last Taken 01/11/18] Rivaroxaban [Xarelto] 20 mg PO DAILY@1800 12/17/16 [Last Taken 01/12/18] Cholecalciferol Vit D3 [Vitamin D3 2000 units tab (OTC)] 2,000 units PO DAILY [Last Taken 01/08/18] Levothyroxine [Synthroid 125 mcg (*)] 125 mcg PO DAILY@02 12/28/17 [Last Taken 01/11/18] - NPO status NPO Since - Liquids (Date): 01/11/18 NPO Since - Solids (Date): 01/11/18 - Smoking Hx Smoking Status: Former smoker - Family Anes Hx Family Hx Anesthesia Complications: NONE ANE Labs/Vital Signs - Vital Signs Blood Pressure: 116/54 Heart Rate: 54 Respiratory Rate: 16 O2 Sat (%): 95 Height: 190.5 cm Weight: 72.575 kg ANE Physical Exam - Airway Neck exam: decreased ROM Mallampati Score: Class 2 Mouth exam: normal dental/mouth exam - Pulmonary Pulmonary: no respiratory distress - Cardiovascular Cardiovascular: regular rate and rhythym, diastolic murmur, pulses symmetric bilaterally - ASA Status ASA Status: III ANE Anesthesia Plan Anesthesia Plan: GA w LMA, spinal Regional Anesthesia: adductor canal FNB
[2018-01-12] MEDS ORDERED: fentaNYL 100 MCG/2 ML INJ ONE (11:30)
[2018-01-12] MEDS ORDERED: PROPOFOL/EMULSION 500 MG/50 ML BOTTLE IV ONE (11:39)
[2018-01-12] MEDS ORDERED: LIDOCAINE 2% 5 ML SDV ONE (11:41)
[2018-01-12] MEDS ORDERED: diphenhydrAMINE 25 MG CAP PO PRN (12:53)
[2018-01-12] MEDS ORDERED: PROMETHAZINE HCL 25 MG/ML INJ IVP PRN (12:53)
[2018-01-12] MEDS ORDERED: PROMETHAZINE HCL 25 MG SUPPR PR PRN (12:53)
[2018-01-12] MEDS ORDERED: CYCLOBENZAPRINE 10 MG TAB PO PRN (12:53)
[2018-01-12] MEDS ORDERED: oxyCODONE IR 5 MG TAB PO PRN (12:53)
[2018-01-12] MEDS ORDERED: MAGNESIUM HYDROXIDE 30 ML UDCUP PO PRN (12:53)
[2018-01-12] MEDS ORDERED: TEMAZEPAM 15 MG CAP PO PRN (12:53)
[2018-01-12] MEDS ORDERED: ONDANSETRON DISINTEGRATING 4 MG TAB PO PRN (12:53)
[2018-01-12] MEDS ORDERED: METOCLOPRAMIDE 10 MG/2 ML VIAL IVP PRN (12:53)
[2018-01-12] MEDS ORDERED: POLYETHYLENE GLYCOL 3350 17 GM PKT PO PRN (12:53)
[2018-01-12] MEDS ORDERED: ONDANSETRON 4 MG/2 ML VIAL IVP PRN ×2 (12:53→12:56)
[2018-01-12] MEDS ORDERED: BISACODYL 10 MG SUPP PR PRN (12:53)
[2018-01-12] MEDS ORDERED: LACTULOSE 20 GM/30 ML UDCUP PO PRN (12:53)
[2018-01-12] MEDS ORDERED: DIPHENOXYLATE/ATROPINE LOMOTIL 1 TAB PO PRN (12:53)
--- NOTE | 2018-01-12 12:53 | POSTOPPROG ---
Post Op Note Date of Operation: 01/12/18 Surgeon: Vernon Vasquez Car Seat Upholsterer: lenin cartagena Anesthesiologist: scottie Pre-op Diagnosis: right knee djd Post-op Diagnosis: same Indication: same Procedure: right tka Inf/Abcess present in the surg proc area at time of surgery?: No Depth: Deep Incisional (Fascial) EBL: 100-500 Complications: none
[2018-01-12] MEDS ORDERED: fentaNYL 100 MCG/2 ML INJ IVP PRN (12:56)
[2018-01-12] MEDS ORDERED: NALOXONE HCL 0.4 MG/ML INJ IVP PRN (12:56)
[2018-01-12] MEDS ORDERED: LR 1,000 ML IV SCH (13:00)
[2018-01-12] MEDS ORDERED: BUPIVACAINE 0.5% 30 ML SDV ONE (13:08)
--- NOTE | 2018-01-12 13:21 | POSTANESTH ---
Post Anesthetic Evaluation Cardiovascular Status: Similar to Pre-Op Cond Respiratory Status: Normal, Stable Level of Consciousness/Mental Status: Can Participate in Eval Pain Control: Adequate, Prn Tx Ordered Nausea/Vomiting Control: Adequate, Prn Tx Ordered Complications Possibly Related to Anesthesia: None Noted
[2018-01-12] MEDS ORDERED: ceFAZolin 2 GM/DEXTROSE 100 ML IV SCH (14:00)
[2018-01-12] MEDS: ACETAMINOPHEN 325 MG TAB PO SCH ×2 (18:00→23:35)
[2018-01-12] MEDS: SENNOSIDES/DOCUSATE SODIUM TAB PO SCH (20:41)
[2018-01-12] MEDS: ceFAZolin 2 GM in D5W 100 ML IV SCH (20:41)
[2018-01-12] MEDS: TRANEXAMIC ACID 650 MG TAB PO SCH (20:41)
[2018-01-12] MEDS: FAMOTIDINE 20 MG TAB PO SCH (20:41)
[2018-01-13] MEDS ORDERED: LEVOTHYROXINE 125 MCG TAB PO SCH (02:00)
[2018-01-13] MEDS: TRANEXAMIC ACID 650 MG TAB PO SCH (05:02)
[2018-01-13] MEDS: ceFAZolin 2 GM in D5W 100 ML IV SCH (05:02)
[2018-01-13] MEDS: ACETAMINOPHEN 325 MG TAB PO SCH ×2 (05:02→12:10)
[2018-01-13] MEDS ORDERED: NON-FORMULARY NEW DRUG (Omeprazole [Prilosec 20 Mg] 20 MG) PO SCH (06:00)
[2018-01-13] MEDS ORDERED: PANTOPRAZOLE SODIUM 40 MG TAB PO SCH (06:00)
--- NOTE | 2018-01-13 07:26 | SOAPPROG ---
SOAP Progress Note Assessment/Plan: Assessment: s/p right tka Plan:new lateral xray to eval femur component positioning. current lateral inadequate dvt precautions reviewed will restart xarelto this evening d/c when cleared by pt 01/13/18 07:25 Subjective: no co no cp or sob Objective: Vital Signs Temp Pulse Resp BP Pulse Ox 36.6 C 48 L 16 92/46 L 93 01/13/18 04:00 01/13/18 04:00 01/13/18 04:00 01/13/18 04:00 01/13/18 04:00 Laboratory Results 01/13/18 04:34 01/12/18 01/13/18 01/14/18 05:59 05:59 05:59 Intake Total 1540 Output Total 325 Balance 1215 dressing intact intact pf,df,ehl jareth neg homans jareth xrays stable alignment on ap, lat with lucency at trochlear notch ICD10 Worksheet Patient Problems: Problems Problem Status Onset Anemia Acute Chronic Disease Mgmt/Transitional Care Acute Congestive heart failure Acute
--- NOTE | 2018-01-13 07:27 | PDIAF ---
- Diagnosis Diagnosis: right knee djd Code Status: Full Code - Medication Management Discharge Medications: Medications to Continue on Transfer Cyanocobalamin [Vitamin B12 (*)] 1,000 mcg PO DAILY 12/17/16 [Last Taken ] Omeprazole [Prilosec 20 mg] 20 mg PO DAILY@0600 12/17/16 [Last Taken 01/11/18] Rivaroxaban [Xarelto] 20 mg PO DAILY@1800 12/17/16 [Last Taken 01/12/18] Amiodarone HCl [Pacerone (*)] 200 mg PO DAILY #30 tab 12/20/16 [Last Taken Unknown] Cholecalciferol Vit D3 [Vitamin D3 2000 units tab (OTC)] 2,000 units PO DAILY [Last Taken 01/08/18] Levothyroxine [Synthroid 125 mcg (*)] 125 mcg PO DAILY@02 12/28/17 [Last Taken 01/11/18] oxyCODONE IR [Oxycodone Ir (*)] 5 - 10 mg PO Q3HRS PRN #45 tab 01/13/18 [Last Taken Unknown] Discharge Medications: Refer to the Discharge Home Medication list for PRN reason. - Orders Services needed: Physical Therapy Diet Recommendation: no restrictions on diet Diet Texture: Regular Texture Diet Activity/Weight Bearing Restrictions: wbat. range of motion as tolerated. keep dressing in place. if dressing becomes saturated change daily. f/u at two weeks. seek attn for increasing pain, drainage, swelling or other focal complaint Additional Instructions: TOTAL JOINT ARTHROPLASTY DISCHARGE INSTRUCTIONS 1. Your surgeon follows the [facility] protocol for reducing your risk of DVT (blood clots) following surgery. Medication will be ordered to prevent blood clots. A sudden increase in calf pain and/or swelling could indicate a blood clot in your leg. If this occurs, please call your surgeon or his/her news production assistant. An ultrasound of the leg may be necessary to diagnose a blood clot. If you have conditions that make you a higher risk for blood clots, your surgeon may use more aggressive ways to prevent them. Notify your surgeon if you think you are a high risk for blood clots. 2. Wear your white surgical stockings (FABIANA hose) for 2 weeks. This decreases your swelling and may help prevent blood clots. It is ok to remove FABIANA hose at night time to give your legs a break. 3. Swelling and bruising in the surgical leg is common. If you feel that it is excessive, please notify your surgeon. 4. Elevate your surgical leg with the ankle above the hip several times every day. Please keep the leg straight when you elevate by putting pillows under your foot. Do not put pillows under your knee. This will make being able to fully straighten more difficult. This is uncomfortable, but try to do it as much as possible. 5. For total knee replacements use compressive wrap on your knee for 3-5 days after surgery, then you can discontinue it. 6. Use a walker or crutches for 1-2 weeks. Progress your weight-bearing as tolerated. You may start to use a cane when you feel stable and safe. 7. You will receive physical therapy instructions in the hospital. Continue those exercises at home. There are additional exercises in the total joint booklet you were given before surgery. Outpatient physical therapy will begin 7- 10 days after surgery. Please schedule this in advance. 8. Use ice on your knee at least 3-5 times every day for 30 minutes. This helps reduce pain and swelling. Also use it at night before falling asleep. 9. Leave your surgical dressing in place for 2 weeks. Your dressing is water resistant, but not waterproof. Cover it with Saran Wrap or [id number] before showering. You may shower as soon as you feel safe entering a shower. If you notice bleeding from your incision 2 or 3 days after surgery, please notify your surgeon. 10. Due to narcotics, decreased activity and altered diet, most patients experience constipation after surgery. Use [id number] stool softeners while you are on narcotics. 11. You may drive a car when you are comfortable bearing weight, have good muscular control of your leg and are off narcotics. This usually occurs 2-4 weeks after surgery, depending on which leg was operated on. 12. If there are questions not addressed here, please refer the [facility] book given for more information. If you still have questions, please contact your surgeon s office. 13. If you have a life-threatening emergency, please call 911 and go to the emergency room immediately. For non-life threatening emergencies, please call your physicians office for advice before going to the emergency room. - Follow Up Care Current Providers and Referrals: Karen Campos MD [Primary Care Provider] - Vernon Vasquez MD [Medical Doctor] -
[2018-01-13] MEDS: SENNOSIDES/DOCUSATE SODIUM TAB PO SCH (08:18)
[2018-01-13] MEDS: FAMOTIDINE 20 MG TAB PO SCH (08:20)
[2018-01-13] MEDS ORDERED: CHOLECALCIFEROL VIT D3 2,000 UNITS TAB/CAP PO SCH (09:00)
[2018-01-13] MEDS ORDERED: AMIODARONE HCL 200 MG TAB PO SCH (09:00)
[2018-01-13] MEDS ORDERED: CYANO/VITAMIN B12 1000 MCG TAB PO SCH (09:00)
--- NOTE | 2018-01-13 10:44 | ASMTCMCOM ---
CM Note CM Note Notes: Pt medically stable for d/c with [facility] PT. Orders to be obtained via MyVerse. Date Signed: 01/13/2018 10:43 AM Electronically Signed By:JONNATHAN Dale
--- NOTE | 2018-01-13 12:30 | ASDISCHSUM ---
Discharge Information Plan Status:Home with Home Health Medically Cleared to Leave: Discharge Date:01/13/2018 12:10 PM CM D/C Disposition:Home Health Service ADT D/C Disposition:Home Health Service Projected Discharge Date:01/13/2018 11:00 AM Transportation at D/C: Discharge Delay Reason: Follow-Up Date:01/13/2018 11:00 AM Discharge Slot: Final Diagnosis: Placement Information Referral Type:*Home Health Care Services Referral ID:[id number] Provider Name:[facility] [address] Address 2: City:[place] Selection Factors: State:[place] Patient Contact Information Contact Name:ROGERVANNESSAJILLIAN Relationship: Address:[address] Phone: City:[place] Alternate Phone: State/Zip Code:[place] [address] Email: Financial Information Financial Class:Medicare Primary Plan Desc:MEDICARE OUTPATIENT Primary Plan Number:[id number] Secondary Plan Desc:VANESSA PPO [employer] Secondary Plan Number:[id number] Assessment Information [facility] CM Progress Note CM Note CM Note Notes: Pt medically stable for d/c with [facility] PT. Orders to be obtained via resmio. Date Signed: 01/13/2018 10:43 AM Electronically Signed By:JONNATHAN Dale Intervention Information
[2018-01-13 13:13] VITALS: BP 94/45
--- NOTE | 2018-01-28 09:53 | GOP ---
[f rep st] OPERATIVE REPORT DATE OF OPERATION: 01/12/2018 SURGEON: Vernon Vasquez MD FIRE PREVENTION INSPECTOR: Zaid Yousif, SUPERVISOR CAB, CORRECTIVE THERAPY AIDE TEACHER, ophthalmology surgical technician who was a medical necessity for the entiret y of the case. PREOPERATIVE DIAGNOSIS: Right knee degenerative joint disease. POSTOPERATIVE DIAGNOSIS: Right knee degenerative joint disease. PROCEDURE PERFORMED: Right total knee arthroplasty, MAKOplasty. FINDINGS: SPECIMENS: Knee bony cuts. ESTIMATED BLOOD LOSS: 100 cc. INDICATIONS: The patient is an 82-year-old gentleman with end-stage arthritis to his right knee. Cl inical and radiographic features are consistent with this. He has failed all attempts at conservativ e management. I have, therefore, recommended operative intervention. I have outlined the surgical p rocedure, risks, benefits, and alternatives. He wished to proceed. Written consent was signed and p laced in patient's chart. DESCRIPTION OF PROCEDURE: The patient was identified in the preanesthesia area. The right knee ashlee rly demarcated as the operative site with indelible marker. He was given 2 g of Ancef intravenously en route to the operative suite. In the OR spinal anesthetic was placed followed by sedation. Atten tion was turned to the right knee which was sterilely prepped and draped in usual fashion. Appropria te time-out procedure was carried out. The limb was exsanguinated, Esmarch bandage and tourniquet in flated to 275 mmHg. A standard anterior midline incision was made. Thick subcutaneous flaps were el evated followed by medial parapatellar arthrotomy. The subperiosteal elevation was carried out to th e mid coronal plane both medially and laterally. Retractors were placed, protecting the medial colla teral structures. The knee was brought to a bent position and there was clear tricompartmental arthr itis. Two pins were then placed from medial aspect for the femoral reference array and femoral check point placed. In a similar fashion through a percutaneous 2 cm incision over the distal tibia 2 pin s were placed and the tibial reference array was affixed. A proximal tibial check point was placed. All bony landmarks were entered into the computer using the MAKOplasty protocol. Resections were ma de for a size 7 femur, size 7 tibia, the trochlear cut was then made with a separate cutting jig. Tr ial reduction was carried out over a 9 mm polyethylene spacer. This allowed full flexion extension w ithout instability with varus valgus stress through the flexion-extension arc. The trial components were withdrawn. The size 7 tibia was then impacted in a press-fit technique to the tibia as was the femur and a 7 x 9 mm polyethylene spacer was placed confirmed to be fully seated. The knee was broug ht to extension, the patella was everted cut in a freehand cutting technique and drill holes made for a size 40 metal-backed poly patella. A size 40 patella was then press-fit into position. The knee cap tracked centrally through the flexion-extension arc. The wound was copiously irrigated. The cap scott injected with a joint cocktail of ropivacaine, morphine, Toradol, and epinephrine. Medial parap atellar arthrotomy closed using #1 Ethibond. The knee instilled with the platelet-rich plasma soluti on. Subcutaneous tissue closed using 2-0 Monocryl and the skin was stapled. Sterile dressing was ap plied. The patient was awakened, extubated and taken to recovery room in good stable condition. TOTAL TOURNIQUET TIME: 55 minutes. COMPLICATIONS: None. IMPLANTS: Triathlon posterior stabilized femoral component size 7, size 7 tibia, 7 x 9 mm polyethyle ne insert and a size 40 patella. DISPOSITION: To the recovery room, then the floor. /[id number]/MODL
--- NOTE | 2018-01-28 09:53 | GDS ---
[f rep st] DISCHARGE SUMMARY ADMIT DIAGNOSIS: Right knee degenerative joint disease. DISCHARGE DIAGNOSIS: Right knee degenerative joint disease. PROCEDURE: Right total knee arthroplasty. HISTORY OF PRESENT ILLNESS: The patient is an 82-year-old gentleman who presents for elective right total knee replacement. He has clinical and radiographic features consistent with end-stage arthriti s. HOSPITAL COURSE: The patient was admitted to the hospital floor after uncomplicated total knee arthr oplasty. He tolerated procedure well. At the time of discharge, he was tolerating an oral diet. Pa in was well controlled on oral medicines. He was voiding without difficulty. Dressing was clean, dr y, and intact. Negative Homans bilaterally. X-rays were stable with anatomic alignment. There was no fracture or lucency. DISCHARGE ACTIVITY: Weightbearing as tolerated. Range of motion as tolerated. Daily dressing cantu es. No soaking or immersion. FOLLOWUP: In 2 weeks for repeat evaluation. Seek attention for increasing redness, swelling, draina ge, discharge, or other focal complaints. MEDICATIONS: Oxycodone 5 mg 1-2 every 6 hours p.r.n. pain, aspirin 325 mg p.o. daily for 6 weeks. /[id number]/MODL
== END 2018-01-13 12:10 | disposition home health service (06) ==
LOC: F3N 09:17 → INTOOBSV 09:17 → F3N 14:15
PROVIDERS: ADMIT Orthopaedic Surgery; ATTEND Orthopaedic Surgery
PROC: 3E0U0GB Introduction of Recombinant Bone Morphogenetic Protein into Joints, Open Approach (ICD-10-PCS; principal; 2018-01-12 11:30)
PROC: 8E0YXBZ Computer Assisted Procedure of Lower Extremity (ICD-10-PCS; principal; 2018-01-12 11:30)
PROC: 0SRC0JZ Replacement of Right Knee Joint with Synthetic Substitute, Open Approach (ICD-10-PCS; principal; 2018-01-12 11:30)
DX: M17.11 Unilateral primary osteoarthritis, right knee (principal); I48.0 Paroxysmal atrial fibrillation; I34.0 Nonrheumatic mitral (valve) insufficiency; I35.1 Nonrheumatic aortic (valve) insufficiency; E03.9 Hypothyroidism, unspecified; I27.20 Pulmonary hypertension, unspecified; I95.9 Hypotension, unspecified; G47.30 Sleep apnea, unspecified; D50.9 Iron deficiency anemia, unspecified; Z79.01 Long term (current) use of anticoagulants; Z85.46 Personal history of malignant neoplasm of prostate; Z87.891 Personal history of nicotine dependence
CPT/HCPCS: 0232T; 20985; 27447; 73560; 88311; 97110; 97161; 97165; C1776; G8978; G8979; G8980; G8987; G8988; G8989; J0171; J0690; J1885; J2270; J2704; J2795; J3010

== ENCOUNTER → 2018-02-02 | Outpatient (CLI) | payer OTHER | LOC: BHFA 09:15 | PROVIDERS: ATTEND Internal Medicine Cardiovascular Disease | DX: I48.91 Unspecified atrial fibrillation (principal); R01.1 Cardiac murmur, unspecified ==

== ENCOUNTER → 2018-02-24 | Outpatient (CLI) | payer OTHER | LOC: BMCIMAGING 08:42 | PROVIDERS: ATTEND Orthopaedic Surgery | DX: Z47.1 Aftercare following joint replacement surgery (principal); Z96.651 Presence of right artificial knee joint ==

== ENCOUNTER → 2018-04-08 | Outpatient (CLI) | payer OTHER | DX: Z09 Encounter for follow-up examination after completed treatment for conditions other than malignant neoplasm (principal); Z96.651 Presence of right artificial knee joint ==

== ENCOUNTER → 2018-04-14 | Outpatient (CLI) | payer OTHER ==
[~2018-04-14] MED LIST changes: -CALCIUM CHLORIDE 1 GM/10 ML INJ ONE; +IOPAMIDOL (ISOVUE 370) 100 ML BTL IV ONE; -ROPIVACAINE 0.2% 80 MG, EPINEPHrine 0.2 MG, KETOROLAC TROMETHAMINE 30 MG, morphINE 10 M... IU ONE; -THROMBIN (BOVINE) 5,000 UNIT VIAL TP ONE; -TRANEXAMIC ACID 1,000 MG in NS 100 ML IV ONE; -ceFAZolin 1 GM VIAL ONE
== END ==
LOC: FIMAGING 13:20
PROVIDERS: ATTEND Internal Medicine Cardiovascular Disease
DX: I77.810 Thoracic aortic ectasia (principal); K86.9 Disease of pancreas, unspecified
CPT/HCPCS: 71275; Q9967

== ENCOUNTER → 2018-04-30 | Outpatient (CLI) | payer OTHER ==
[~2018-04-30] MED LIST changes: -IOPAMIDOL (ISOVUE 370) 100 ML BTL IV ONE; +IOPAMIDOL (ISOVUE-300) 100 ML BTL ONE
== END ==
LOC: FIMAGING 13:26
PROVIDERS: ATTEND Internal Medicine Cardiovascular Disease
DX: R93.8 Abnormal findings on diagnostic imaging of other specified body structures (principal); K86.9 Disease of pancreas, unspecified
CPT/HCPCS: 74160; Q9967

== ENCOUNTER → 2018-05-11 | Outpatient (CLI) | payer OTHER ==
[~2018-05-11] MED LIST changes: +GADOBUTROL 10 ML VIAL IVP ONE; -IOPAMIDOL (ISOVUE-300) 100 ML BTL ONE
== END ==
LOC: FIMAGING 14:06
PROVIDERS: ATTEND Internal Medicine Cardiovascular Disease
DX: K86.2 Cyst of pancreas (principal); N28.1 Cyst of kidney, acquired
CPT/HCPCS: 74183; A9585

== ENCOUNTER → 2018-08-28 | Outpatient (CLI) | payer OTHER | LOC: BHFA 14:00 | PROVIDERS: ATTEND Internal Medicine | DX: H53.9 Unspecified visual disturbance (principal) ==

== ENCOUNTER 2018-10-22 13:45 | Emergency (ER) | payer OTHER ==
--- NOTE | 2018-10-22 13:55 | EDPHY ---
H & P Time Seen by Provider: 10/22/18 13:45 HPI/ROS: CHIEF COMPLAINT: Head injury HISTORY OF PRESENT ILLNESS: Arrives by EMS is limited trauma. Per EMS the patient was seen by a neighbor to get pulled over by his family's dog ( Lanie) and landed on his head and face and was unconscious on EMS arrival. Brought in as a limited trauma with a neck collar. On arrival he has some facial pain and headache but no other complaints. He does not remember the incident. He has no weakness or numbness in extremities and no neck pain. REVIEW OF SYSTEMS: Eye: no change in vision ENT: no sore throat Cardiac: No chest pain Pulmonary: no cough or SOB Abdomen: no vomiting or abdominal pain Musculoskeletal: no back pain or neck pain Skin: Right facial abrasion on the cheek Neuro: no headache Constitutional: no fever : no urinary symptoms A comprehensive 10 point review of systems is otherwise negative aside from elements mentioned in the history of present illness. PAST MEDICAL HISTORY: Atrial fibrillation on Xarelto. Discharge summary dated 12/20/2016 personally reviewed includes appendectomy, hypertension. Social history: Former smoker no alcohol today General Appearance: Alert and conversant, cooperative. Oriented to person but not to year. He does recognize me as a physician who has treated him before. Eyes: No scleral icterus. Pupils equal reactive extraocular motion intact. ENT, Mouth: Normal mucous membranes. Right cheek abrasion with some facial swelling around the orbit. Respiratory: Normal respiratory effort, breath sounds equal, lungs are clear to auscultation. Cardiovascular: Regular rate and rhythm. Gastrointestinal: Abdomen is soft and non tender. Neurological: Alert, face symmetric, normal motor and sensory in extremities. He can follow commands. He does not remember the event. Skin: Right elbow abrasion. Musculoskeletal: No midline spinal tenderness. Psychiatric: Not agitated. Emergency Department course/MDM: Plan for head and cervical spine CT. Cannot clear clinically initially because of altered mental status. Head CT for trauma and anticoagulation. History is clear from EMS that this was a traumatic event and not medical syncope. 1356: Discussed with patient's . 1429: CT head and Cspine per Yazmin negative for trauma, possible interstitial lung disease new from March 2018. Results reviewed with the patient and his . Downgraded to no level trauma activation. 1559: Daughter bedside, normal mental status. Ambulatory, head injury precautions discussed including warnings about possible delayed bleeding. Discharge with concussion. Discussed with Beth at 2103 regarding the need for repeat in office clinical evaluation with possibility of delayed bleeding on Xarelto, and follow up on the interstitial lung disease seen incidentally on his neck CT. Smoking Status: Former smoker Constitutional: Initial Vital Signs Temperature (C) 36.4 C 10/22/18 14:36 Heart Rate 59 L 10/22/18 14:36 Respiratory Rate 18 10/22/18 14:36 Blood Pressure 146/68 H 10/22/18 14:36 O2 Sat (%) 92 10/22/18 14:36 O2 Delivery Mode Room Air Allergies/Adverse Reactions: oxycodone HCl [From Percocet] Allergy (Mild, Verified 10/22/18 14:39) Vomiting hydrocodone Allergy (Verified 10/22/18 14:39) oxycodone HCl Allergy (Unknown, Uncoded 10/22/18 14:39) Vomiting Home Medications: Medication Instructions Recorded Cyanocobalamin [Vitamin B12 (*)] 1,000 mcg PO DAILY 12/17/16 Omeprazole [Prilosec 20 mg] 20 mg PO DAILY@0600 12/17/16 Rivaroxaban [Xarelto] 20 mg PO DAILY@1800 12/17/16 Amiodarone HCl [Pacerone (*)] 200 mg PO DAILY #30 tab 12/20/16 Cholecalciferol Vit D3 [Vitamin D3 2,000 units PO DAILY 12/28/17 2000 units tab (OTC)] Levothyroxine [Synthroid 125 mcg 125 mcg PO DAILY@02 12/28/17 (*)] oxyCODONE IR [Oxycodone Ir (*)] 5 - 10 mg PO Q3HRS PRN #45 tab 01/13/18 Medical Decision Making - Diagnostics Imaging Results: Imaging Impressions Cervical Spine CT 10/22/18 13:52 Impression: Moderate periventricular and deep hemispheric white matter change which is nonspecific and can be seen with small vessel ischemic disease which has progressed over the interval. No evidence for acute intracranial abnormality. Mild soft tissue swelling seen over the right supraorbital region without evidence for fracture. CT Cervical Spine Without Contrast History: Trauma. Fall. Technique: 1.5 mm images were obtained of the cervical spine without contrast. Multiplanar reformation was performed. Radiation dose reduction technique was utilized. Findings: There is apical pleural scarring bilaterally. Interstitial prominence is seen bilaterally in both upper lobes which has increased over the interval and small subcentimeter pulmonary nodules. Interstitial prominence and nodularity is new from CT angiogram of the chest dated March 2018. Disk height narrowing and osteophytosis are seen at multiple levels in the cervical spine. No evidence for acute fracture or subluxation. No evidence for prevertebral soft tissue swelling. Degenerative change is seen in the anterior arch of C1 articulation with the dens with mild effacement of the anterior thecal sac. C2-C3 level demonstrates mild uncovertebral joint hypertrophy and spurring. Facet arthropathy is more severe on the left. Mild left neural foraminal narrowing. C3-C4 level demonstrates uncovertebral joint hypertrophy and spurring and facet arthropathy bilaterally, more predominant on the left. Moderate to severe left and moderate right neural foraminal narrowing. C4-C5 level demonstrates a mild broad-based annular bulge mildly effacing the anterior thecal sac. Uncovertebral joint hypertrophy and spurring and facet arthropathy is seen bilaterally. Moderate to severe left and moderate right neural foraminal narrowing. C5-C6 level demonstrates a mild broad-based annular bulge and posterior osteophytosis mildly effacing the anterior thecal sac. Uncovertebral joint hypertrophy and spurring are seen bilaterally and facet arthropathy with moderate bilateral neural foraminal narrowing. C6-C7 level demonstrates a broad-based annular bulge and posterior osteophytosis causing mild to moderate effacement of the anterior thecal sac. Uncovertebral joint hypertrophy and spurring and facet arthropathy are seen bilaterally with moderate bilateral neural foraminal narrowing. C7-T1 level demonstrates mild uncovertebral joint hypertrophy causing no significant encroachment. Impression: 1. Multilevel degenerative disk and degenerative joint disease of the cervical spine. No evidence for acute fracture. Please see detailed description by level above. 2. New interstitial prominence with nodularity in both upper lobes which is new from CT angiogram chest 2018. This could represent interstitial lung disease, small airways disease, or metastatic disease. Mild apical pleural thickening bilaterally. Recommend follow up with pulmonary and consider CT chest for further evaluation. Results called and discussed with Dr. Jefe Rodriguez on 10/22/2018, 14:33. Head CT 10/22/18 13:52 Impression: Moderate periventricular and deep hemispheric white matter change which is nonspecific and can be seen with small vessel ischemic disease which has progressed over the interval. No evidence for acute intracranial abnormality. Mild soft tissue swelling seen over the right supraorbital region without evidence for fracture. CT Cervical Spine Without Contrast History: Trauma. Fall. Technique: 1.5 mm images were obtained of the cervical spine without contrast. Multiplanar reformation was performed. Radiation dose reduction technique was utilized. Findings: There is apical pleural scarring bilaterally. Interstitial prominence is seen bilaterally in both upper lobes which has increased over the interval and small subcentimeter pulmonary nodules. Interstitial prominence and nodularity is new from CT angiogram of the chest dated March 2018. Disk height narrowing and osteophytosis are seen at multiple levels in the cervical spine. No evidence for acute fracture or subluxation. No evidence for prevertebral soft tissue swelling. Degenerative change is seen in the anterior arch of C1 articulation with the dens with mild effacement of the anterior thecal sac. C2-C3 level demonstrates mild uncovertebral joint hypertrophy and spurring. Facet arthropathy is more severe on the left. Mild left neural foraminal narrowing. C3-C4 level demonstrates uncovertebral joint hypertrophy and spurring and facet arthropathy bilaterally, more predominant on the left. Moderate to severe left and moderate right neural foraminal narrowing. C4-C5 level demonstrates a mild broad-based annular bulge mildly effacing the anterior thecal sac. Uncovertebral joint hypertrophy and spurring and facet arthropathy is seen bilaterally. Moderate to severe left and moderate right neural foraminal narrowing. C5-C6 level demonstrates a mild broad-based annular bulge and posterior osteophytosis mildly effacing the anterior thecal sac. Uncovertebral joint hypertrophy and spurring are seen bilaterally and facet arthropathy with moderate bilateral neural foraminal narrowing. C6-C7 level demonstrates a broad-based annular bulge and posterior osteophytosis causing mild to moderate effacement of the anterior thecal sac. Uncovertebral joint hypertrophy and spurring and facet arthropathy are seen bilaterally with moderate bilateral neural foraminal narrowing. C7-T1 level demonstrates mild uncovertebral joint hypertrophy causing no significant encroachment. Impression: 1. Multilevel degenerative disk and degenerative joint disease of the cervical spine. No evidence for acute fracture. Please see detailed description by level above. 2. New interstitial prominence with nodularity in both upper lobes which is new from CT angiogram chest 2018. This could represent interstitial lung disease, small airways disease, or metastatic disease. Mild apical pleural thickening bilaterally. Recommend follow up with pulmonary and consider CT chest for further evaluation. Results called and discussed with Dr. Jefe Rodriguez on 10/22/2018, 14:33. Imaging: Discussed imaging studies w/ call worker Radiologist Differential Diagnosis: Differential diagnosis considered for head injury including but not limited to concussion, skull fracture, intraparenchymal contusion, subarachnoid, subdural and epidural hematoma. - Data Points Laboratory Results: Laboratory Results 10/22/18 13:55 10/22/18 13:55 10/22/18 10/22/18 10/22/18 13:55 13:55 13:55 WBC RBC Hgb Hct MCV MCH MCHC RDW Plt Count MPV Neut % (Auto) Lymph % (Auto) Kleberg % (Auto) Eos % (Auto) Baso % (Auto) Nucleat RBC Rel Count Absolute Neuts (auto) Absolute Lymphs (auto) Absolute Monos (auto) Absolute Eos (auto) Absolute Basos (auto) Absolute Nucleated RBC Immature Gran % Immature Gran # PT 18.7 SEC H SEC (12.0-15.0) INR 1.64 H (0.83-1.16) APTT 40.6 SEC H SEC (23.0-38.0) Sodium 132 mEq/L L mEq/L (135-145) Potassium 5.0 mEq/L mEq/L (3.5-5.2) Chloride 99 mEq/L mEq/L (97-110) Carbon Dioxide 25 mEq/l mEq/l (22-31) Anion Gap 8 mEq/L mEq/L (6-14) BUN 22 mg/dL mg/dL (7-23) Creatinine 1.0 mg/dL mg/dL (0.7-1.3) Estimated GFR > 60 Glucose 98 mg/dL mg/dL (70-100) Calcium 8.9 mg/dL mg/dL (8.5-10.4) Patient ABO/Rh A POSITIVE Antibody Screen NEGATIVE 10/22/18 13:55 WBC 5.86 10^3/uL 10^3/uL (3.80-9.50) RBC 4.11 10^6/uL L 10^6/uL (4.40-6.38) Hgb 13.6 g/dL L g/dL (13.7-17.5) Hct 40.5 % % (40.0-51.0) MCV 98.5 fL fL (81.5-99.8) MCH 33.1 pg pg (27.9-34.1) MCHC 33.6 g/dL g/dL (32.4-36.7) RDW 13.2 % % (11.5-15.2) Plt Count 302 10^3/uL 10^3/uL (150-400) MPV 11.7 fL fL (8.7-11.7) Neut % (Auto) 54.5 % % (39.3-74.2) Lymph % (Auto) 25.4 % % (15.0-45.0) Kleberg % (Auto) 17.9 % H % (4.5-13.0) Eos % (Auto) 1.0 % % (0.6-7.6) Baso % (Auto) 0.3 % % (0.3-1.7) Nucleat RBC Rel Count 0.0 % % (0.0-0.2) Absolute Neuts (auto) 3.19 10^3/uL 10^3/uL (1.70-6.50) Absolute Lymphs (auto) 1.49 10^3/uL 10^3/uL (1.00-3.00) Absolute Monos (auto) 1.05 10^3/uL H 10^3/uL (0.30-0.80) Absolute Eos (auto) 0.06 10^3/uL 10^3/uL (0.03-0.40) Absolute Basos (auto) 0.02 10^3/uL 10^3/uL (0.02-0.10) Absolute Nucleated RBC 0.00 10^3/uL 10^3/uL (0-0.01) Immature Gran % 0.9 % % (0.0-1.1) Immature Gran # 0.05 10^3/uL 10^3/uL (0.00-0.10) PT INR APTT Sodium Potassium Chloride Carbon Dioxide Anion Gap BUN Creatinine Estimated GFR Glucose Calcium Patient ABO/Rh Antibody Screen Departure - Departure Disposition: Home, Routine, Self-Care Clinical Impression: Concussion Qualifiers: Encounter type: initial encounter Loss of consciousness presence/duration: with LOC of 30 min or less Qualified Code(s): S06.0X1A - Concussion with loss of consciousness of 30 minutes or less, initial encounter Contusion of face Qualifiers: Encounter type: initial encounter Qualified Code(s): S00.83XA - Contusion of other part of head, initial encounter Condition: Good Instructions: Concussion (ED) Referrals: Karen Campos MD [Primary Care Provider] - As per Instructions
[2018-10-22 14:23] LABS: PLATELET COUNT 302 10^3/uL (150-400)
[2018-10-22 14:40] LABS: INR 1.64 (0.83-1.16); PROTIME(PATIENT) 18.7 SEC (12.0-15.0)
[2018-10-22 16:39] VITALS: BP 149/63
== END 2018-10-22 16:39 | disposition home or self-care (01) ==
LOC: EDUNIT#
DX: S06.0X1A Concussion with loss of consciousness of 30 minutes or less, initial encounter (principal); S00.83XA Contusion of other part of head, initial encounter; I48.91 Unspecified atrial fibrillation; I10 Essential (primary) hypertension; W54.8XXA Other contact with dog, initial encounter; Y93.K1 Activity, walking an animal; Y92.007 Garden or yard of unspecified non-institutional (private) residence as the place of occurrence of the external cause; Z79.01 Long term (current) use of anticoagulants

== ENCOUNTER → 2018-11-26 | Outpatient (CLI) | payer OTHER ==
[~2018-11-26] MED LIST changes: -GADOBUTROL 10 ML VIAL IVP ONE; +IOPAMIDOL (ISOVUE-300) 100 ML BTL ONE
== END ==
LOC: FIMAGING 08:59
PROVIDERS: ATTEND Urology
DX: N48.89 Other specified disorders of penis (principal); M51.36 Other intervertebral disc degeneration, lumbar region
CPT/HCPCS: 72193; Q9967

== ENCOUNTER 2018-11-30 15:47 | Inpatient (IN) | payer OTHER ==
[2018-11-30] MEDS ORDERED: CLOPIDOGREL BISULFATE 75 MG TAB ONE (16:07)
[2018-11-30] MEDS ORDERED: CLOPIDOGREL BISULFATE 75 MG TAB PO ONE ×2 (16:08→17:05)
[2018-11-30 16:10] LABS: PLATELET COUNT 204 10^3/uL (150-400)
[2018-11-30 16:20] LABS: INR 2.12 (0.83-1.16); PROTIME(PATIENT) 22.7 SEC (12.0-15.0)
[2018-11-30] MEDS ORDERED: BIVALIRUDIN 250 MG/5 ML VIAL IV ONE (16:24)
--- NOTE | 2018-11-30 16:24 | EDPHY ---
H & P Time Seen by Provider: 11/30/18 15:48 HPI/ROS: HPI Shortness of breath. 83-year-old male from Urgent Care. This patient presents to the emergency department with complaint of shortness of breath, much worse on exertion and generalized weakness ongoing for at least 2 days now. Denies any chest pain. ROS: Constitutional: No fever, no chills. As above. Eyes: No discharge. No changes in vision. ENT: No sore throat. No nasal congestion or rhinorrhea. Respiratory: No cough. As above. Cardiac: No chest pain, no palpitations. Gastrointestinal: No abdominal pain, no vomiting, no diarrhea. Genitourinary: No hematuria. No dysuria or increased frequency with urination. Musculoskeletal: No back pain. No neck pain. No myalgias or arthralgias. Skin: No rashes. Neurological: No headache. No focal weakness or altered sensation. Past medical history: Atrial fibrillation, GERD, appendectomy, tonsillectomy, prostate cancer, collar bone fracture. 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 Social history: Nonsmoker. Here with his daughter. No alcohol. Physical Exam: General Appearance: Alert, he is not distressed. He is mildly dyspneic. This patient is responding to questions appropriately and in full sentences. This patient appears well-hydrated and well-nourished. Eyes: Pupils equal and round no pallor or injection. No lid edema, erythema or injection. Respiratory: There are no retractions, lungs are clear to auscultation with good air movement bilaterally. Cardiovascular: Regular rate and rhythm. No murmur appreciated. Gastrointestinal: Abdomen is soft and nontender, no masses, bowel sounds normal. No focal tenderness at McBurney's point. No Gomez sign. Neurological: Motor sensory function is grossly intact. Cranial nerves are normal. Gait is normal. Skin: Warm and dry, no rashes. Musculoskeletal: Neck is supple and nontender. Extremities are symmetrical. All joints range without pain or impingement. Psychiatric: No agitation. No depression. Database: EKG: EKG time is 3:57 p.m.; EKG shows a narrow complex atrial fibrillation with a ventricular rate of ED. The QRS, QT intervals are within normal limits. Contiguous ST elevations in the inferior leads with ST depressions in the precordial leads. Likely acute inferior MT. Interpreted by me. Imaging: Procedures: Emergency department course: Triage vital signs reviewed and are normal. The patient is afebrile. Room air pulse oximetry is 92%. IV was placed. He was placed on a cardiac care unit nurse. EKG was obtained and reviewed by myself. Right after I reviewed the EKG a cardiac alert was called. Dr. Becerra, crepe sole scourer was at the patient's bedside within 5 min of the alert being called. The patient was given 600 mg of oral Plavix. I discussed the results of his EKG with him and his daughter and need for immediate PCI. The patient was then transferred to the [facility] at 4:12 p.m.. He was transferred in stable condition. His remaining emergency department course under my care has been uneventful. Differential Diagnosis: The differential diagnosis on this patient includes but is not limited to acute MT. Pulmonary embolism, myocarditis, pericarditis, pericardial effusion, pneumonia, pneumothorax, CHF likely. This represents a partial list of diagnoses considered. These considerations are based on history, physical exam , past history, reassessment and diagnostic testing. Smoking Status: Former smoker Constitutional: Initial Vital Signs Temperature (C) 36.8 C 11/30/18 15:54 Heart Rate 63 11/30/18 15:54 Respiratory Rate 18 11/30/18 15:54 Blood Pressure 117/69 11/30/18 15:54 O2 Sat (%) 92 11/30/18 15:54 O2 Delivery Mode Room Air Allergies/Adverse Reactions: oxycodone HCl [From Percocet] Allergy (Mild, Verified 10/22/18 14:39) Vomiting hydrocodone Allergy (Verified 10/22/18 14:39) oxycodone HCl Allergy (Unknown, Uncoded 10/22/18 14:39) Vomiting Home Medications: Medication Instructions Recorded Cyanocobalamin [Vitamin B12 (*)] 1,000 mcg PO DAILY 12/17/16 Omeprazole [Prilosec 20 mg] 20 mg PO DAILY@0600 12/17/16 Rivaroxaban [Xarelto] 20 mg PO DAILY@1800 12/17/16 Cholecalciferol Vit D3 [Vitamin D3 2,000 units PO DAILY 12/28/17 2000 units tab (OTC)] Levothyroxine [Synthroid 125 mcg 125 mcg PO DAILY@02 05/06/18 (*)] oxyCODONE IR [Oxycodone Ir (*)] 5 - 10 mg PO Q3HRS PRN #45 tab 01/13/18 Medical Decision Making Critical Care Time: I spent a total of 20 minutes of critical care time in obtaining history, performing a physical exam, bedside monitoring of interventions, collecting and interpreting tests and discussion with consultants but not including time spent performing procedures. - Data Points Laboratory Results: Laboratory Results 11/30/18 16:00 11/30/18 11/30/18 11/30/18 16:03 16:00 16:00 WBC RBC Hgb Hct MCV MCH MCHC RDW Plt Count MPV Neut % (Auto) Lymph % (Auto) [place] % (Auto) Eos % (Auto) Baso % (Auto) Nucleat RBC Rel Count Absolute Neuts (auto) Absolute Lymphs (auto) Absolute Monos (auto) Absolute Eos (auto) Absolute Basos (auto) Absolute Nucleated RBC Immature Gran % Immature Gran # Platelet Estimate PT Pending INR Pending APTT Pending D-Dimer Pending Sodium Pending Potassium Pending Chloride Pending Carbon Dioxide Pending Anion Gap Pending BUN Pending Creatinine Pending Estimated GFR Pending Glucose Pending Calcium Pending POC Troponin I 19.37 ng/mL H ng/mL (0.00-0.08) NT-Pro-B Natriuret Pep Pending 11/30/18 16:00 WBC 11.92 10^3/uL H 10^3/uL (3.80-9.50) RBC 3.46 10^6/uL L 10^6/uL (4.40-6.38) Hgb 11.4 g/dL L g/dL (13.7-17.5) Hct 32.7 % L % (40.0-51.0) MCV 94.5 fL fL (81.5-99.8) MCH 32.9 pg pg (27.9-34.1) MCHC 34.9 g/dL g/dL (32.4-36.7) RDW 14.8 % % (11.5-15.2) Plt Count 204 10^3/uL 10^3/uL (150-400) MPV 11.9 fL H fL (8.7-11.7) Neut % (Auto) Pending Lymph % (Auto) Pending [place] % (Auto) Pending Eos % (Auto) Pending Baso % (Auto) Pending Nucleat RBC Rel Count Pending Absolute Neuts (auto) Pending Absolute Lymphs (auto) Pending Absolute Monos (auto) Pending Absolute Eos (auto) Pending Absolute Basos (auto) Pending Absolute Nucleated RBC Pending Immature Gran % Pending Immature Gran # Pending Platelet Estimate Pending PT INR APTT D-Dimer Sodium Potassium Chloride Carbon Dioxide Anion Gap BUN Creatinine Estimated GFR Glucose Calcium POC Troponin I NT-Pro-B Natriuret Pep Medications Given: Discontinued Medications Clopidogrel Bisulfate (Plavix) 600 mg PO EDNOW ONE Stop: 11/30/18 16:09 Last Admin: 11/30/18 16:09 Dose: 600 mg Point of Care Test Results: Chemistry 11/30/18 16:03 POC Troponin I 19.37 ng/mL H ng/mL (0.00-0.08) Departure - Departure Disposition: To OP Cath/Surgery Clinical Impression: Acute coronary syndrome Referrals: Karen Campos MD [Primary Care Provider] - As per Instructions
[2018-11-30] MEDS ORDERED: EPINEPHrine 1 MG/10 ML SYR IVP ONE (16:35)
[2018-11-30] MEDS ORDERED: ATROPINE SULFATE 1 MG/10 ML SYR ONE (16:35)
--- NOTE | 2018-11-30 16:38 | GCON ---
[f rep st] CONSULTATION CARDIOLOGY CONSULT DATE OF CONSULTATION: 11/30/2018 CHIEF COMPLAINT: Chest pain/STEMI. HISTORY OF PRESENT ILLNESS: This is an 83-year-old male with history of atrial fibrillation and hype rtension, who presents with to [facility] complaints of shortness of breath for 2 day's time. The patient was found to have ST elevations inferiorly with ST depressions throughout the ant erior leads. This is a new finding compared with his old EKG. Of note, his troponins are elevated a t 19. Currently, the patient denies any chest pain but has significant shortness of breath with mini mal exertion. No back pain. No neck pain. Blood pressure and heart rate are currently stable. PAST MEDICAL HISTORY: Significant for paroxysmal atrial fibrillation and hypothyroidism. HOME MEDICATIONS: Consist of: Amiodarone, Colace, Levoxyl, magnesium citrate, omeprazole, Xarelto. PAST SURGICAL HISTORY: Not significant. FAMILY HISTORY: Noncontributory. SOCIAL HISTORY: He is . No smoking, no drinking. REVIEW OF SYSTEMS: Patient currently denies any . No visual changes. No throat pain. No neck pain. No ear pain. The patient denies any current chest pain. No back pain. No abdominal pa in. Does indicate having moderate dyspnea with minimal exertion. No lower extremity pain. PHYSICAL EXAM: VITAL SIGNS: Patient currently afebrile at 96, blood pressure 130/70, with a heart r ate of 72, respiratory rate is 12, sat 95% on 2 L nasal cannula. HEENT: Pupils equal, round, reacti ve to light and accommodation. Extraocular movements intact. CARDIOVASCULAR: Regular rate and rhyth m. S1, S2. There are no murmurs auscultated. LUNGS: Clear to auscultation bilaterally. ABDOMEN: Soft and non tender. No guarding. EXTREMITIES: No clubbing, no cyanosis, no edema. NEUROLOGIC: T he patient is alert and oriented x3. LABORATORY VALUES: Currently show troponin of 19. ASSESSMENT/PLAN: Shortness breath/ST elevation myocardial infarction. At this time, it appears the patient is having an acute inferior STEMI. The patient does have elevated troponin of 19. Given his ongoing shortness of breath, we will decide to move quickly to the cardiac catheterization lab. Fur ther orders following clinical course. /[id number]/MODL
[2018-11-30] MEDS ORDERED: ONDANSETRON 4 MG/2 ML VIAL IVP PRN (17:02)
[2018-11-30] MEDS ORDERED: LORazepam 2 MG/ML INJ IVP PRN (17:02)
[2018-11-30] MEDS ORDERED: ATROPINE SULFATE 1 MG/10 ML SYR IVP PRN (17:02)
[2018-11-30] MEDS ORDERED: TEMAZEPAM 15 MG CAP PO PRN (17:02)
[2018-11-30] MEDS ORDERED: ACETAMINOPHEN 325 MG TAB PO PRN (17:11)
[2018-11-30] MEDS ORDERED: NS 1,000 ML IV SCH (17:15)
--- NOTE | 2018-11-30 17:34 | CPEKG ---
Test Reason : OPEN Blood Pressure : / mmHG Vent. Rate : 075 BPM Atrial Rate : 078 BPM P-R Int : 240 ms QRS Dur : 117 ms QT Int : 443 ms P-R-T Axes : 256 061 094 degrees QTc Int : 495 ms Atrial fibrillation LVH with secondary repolarization abnormality Inferior infarct, acute (RCA) Probable RV involvement, suggest recording right precordial leads Confirmed by Shad Chen ([id number]) on 11/30/2018 5:33:50 PM Referred By: Arnol Becerra Confirmed By:Shad Chen
--- NOTE | 2018-11-30 17:44 | CPIP ---
[f rep st] INVASIVE CARDIAC PROCEDURE DATE OF PROCEDURE: 11/30/2018 INDICATION FOR PROCEDURE: STEMI. PROCEDURE: 1. Nonselective right groin sheathogram as well as bilateral selective coronary angiography. 2. Left heart catheterization, left ventriculogram. 3. Percutaneous coronary intervention of mid and distal right coronary artery utilizing Synergy 3.5 x 16 mm drug-eluting stent and 2.5 x 16 mm drug-eluting stent. HISTORY: Briefly, this is an 83-year-old male with a history of paroxysmal atrial fibrillation, hypo thyroidism, who presents to [facility] with complaints of shortness of breath for 3 days time. The patient was found to have ST elevations inferiorly with ST depression throughout the anterior loop recorder l kingsley. The patient also had a troponin elevation of 19. Given these findings, the patient consented for emergent cardiac catheterization. DESCRIPTION OF PROCEDURE: After informed consent, th patient was brought to [facility] where the right groi n was prepped and draped in sterile fashion. Using lidocaine, a Malagasy sheath in the [facility] t common artery verified angiographically. Through the 6-Malagasy sheath a JL4 catheter was advanced t o the left coronary artery. The left coronary artery revealed normal short left main. There was 10% to 20% disease in the proximal left circumflex artery. The circumflex gave off a bifurcating margin al 1 and 2 arteries in the midportion and terminating to what appeared to be a codominant circulation . Distally, the LPLS appeared to be healthy and free of disease. The LAD was a long vessel which wr apped around the apex. The LAD gave off multiple small diagonal arteries, which were healthy and julissa e of disease. The LAD itself had no significant disease. After these images were obtained, the JL4 catheter was removed. The JR4 catheter was advanced to the right coronary artery. Images of the rig coronary artery revealed normal ostial RCA. In the mid RCA, there appeared to be an area of fresh ly ruptured plaque with intact flow through this area. Distally, there was another area of haziness with narrowing ranging at least angiographically and in 1 certain area of at least potentially 70%. Distally, the RPDA had distal downstream disease versus spasm. However, the vessel was intact, givin g off numerous branches. After the image was obtained, the patient was started on an Angiomax bolus and drip. The patient had p.o. INTERVENTIONAL REPORT: At this time, utilizing a JR4 6-Malagasy guide, a Choice PT wire was advanced d own the RPDA. Predilatation commenced across the lesion in the mid RCA with a 3.5 x 12 balloon infla nadine to 6 atmospheres. After this was performed, the balloon was removed. We then proceeded with jg nting of this vessel with a 3.5 x 16 mm Synergy drug-eluting stent. It was deployed successfully at 16 atmospheres. After deployment, angiographic images were obtained, which showed excellent patency of this area. We decided proceed with stenting of the distal RPDA with a 2.5 x 16 mm Synergy drug-el uting stent. It was deployed successfully at 18 atmospheres. After deployment, angiographic images were obtained, which showed excellent patency of the stented regions with no evidence of dissection o r perforation. This was verified in orthogonal views. Wire was removed. Guide catheter was removed over a 0.035 wire. A pigtail catheter was then advanced into the left ventricle. EDP was 15 mmHg. Left ventriculogram obtained in the MOORE projection showed EF of 40% with inferior wall hypokinesis. There was no pull-back gradient between the LV and aorta. Pigtail catheter was removed over the 0.0 35 wire. Right groin closed with 6-Malagasy Angio-Seal. The patient procedure well with no complicati ons. IMPRESSION: Successful percutaneous coronary intervention of ruptured plaque in mid right coronary a rtery and distal right coronary artery/proximal right proximal descending artery with 2 Synergy drug- eluting stents. Essentially normal left coronary artery system. Reduced ejection fraction with inferior wall hypokinesis. Hopefully, will recover function now that flow has been restored. PLAN: The patient will be admitted to the PCU. Further orders following clinical course. The patie nt has a history of being on Xarelto. Will remain on Xarelto and Plavix. Will hold aspirin given th e risk of triple therapy anticoagulation. Will check an echocardiogram in the morning. /[id number]/MODL
[2018-12-01 04:52] LABS: PLATELET COUNT 175 10^3/uL (150-400)
--- NOTE | 2018-12-01 07:52 | PDCARPN ---
Cardiology Progress Note Chief Complaint: SOB Assessment/Plan: Assessment: RCA ACS PCI to RCA reduced EF Plan: 12/01/18 07:50 OOB check echo low dose lasix po no BB/ACEi given low BP start statin continue xarelto and plavix Subjective: stable Reviewed/Discussed With: multidisciplinary team Time Spent with Patient: greater than 25 minutes Time Spent with Patient: Greater than 25 minutes spent on this patients care, greater than 50% of time spent counseling, educating, and coordinating care regarding the above mentioned plan. Objective: Vital Signs (8 Hrs) Temp Pulse Resp BP Pulse Ox 12/01/18 07:10 36.7 C 68 18 93/60 L 96 12/01/18 04:00 36.9 C 77 22 H 109/61 93 Intake/Output (24 Hrs) 11/30/18 12/01/18 12/02/18 05:59 05:59 05:59 Intake Total 936 Output Total 250 200 Balance 686 -200 Intake: Oral (ml) 150 IV Intake (ml) 600 IV Infused (ml) 186 Ns 1,000 ml @ 50 mls/hr 186 IV CONT BRAXTON Rx#: [id number] Output: Urine (ml) 250 200 Urinal 250 200 Other: Weight 72.6 kg Result Diagrams: 12/01/18 04:37 12/01/18 04:37 - Physical Exam Constitutional: no apparent distress Eyes: PERRL Ears, Nose, Mouth, Throat: moist mucous membranes Cardiovascular: irregularly irregular Peripheral Pulses: 1+: femoral (R), femoral (L) Respiratory: clear to auscultate bilat Gastrointestinal: normoactive bowel sounds Genitourinary: no suprapubic tenderness Skin: no rashes Musculoskeletal: no muscular tenderness Neurologic: AAOx3 Psychiatric: cooperative ICD10 Worksheet Patient Problems: Problems Problem Status Onset Acute coronary syndrome Acute Anemia Acute Chronic Disease Mgmt/Transitional Care Acute Congestive heart failure Acute
[2018-12-01] MEDS: RIVAROXABAN 20 MG TAB PO SCH (08:59)
[2018-12-01] MEDS: FUROSEMIDE 40 MG TAB PO SCH (08:59)
[2018-12-01] MEDS: ATORVASTATIN CALCIUM 10 MG TAB PO SCH (08:59)
[2018-12-01] MEDS: CLOPIDOGREL BISULFATE 75 MG TAB PO SCH (08:59)
[2018-12-01] MEDS: PANTOPRAZOLE SODIUM 40 MG TAB PO SCH (08:59)
[2018-12-01] MEDS ORDERED: FUROSEMIDE 20 MG TAB PO SCH (09:00)
--- NOTE | 2018-12-01 11:03 | ECHO ---
[email or web address] [address] [address] Main: [phone] Echocardiography Examination Transthoracic Name: ANTONY COOK MR#: [id number] Study Date: 12/01/2018 Study Time: 07:48 AM Date of : 1935 Age: 83 year(s) Height: 190.5 cm (75 in.) Weight: 72.58 kg (160 lb.) BSA: 2 m2 Gender: Male Examination: Echo Contrast: Image Quality: Good Rhythm: Normal sinus rhythm Heart Rate: 55 bpm BP: 96 mmHg/60 mmHg Indication: Post SD Procedure Staff Referring Physician: Tennis Ball Cover Cementer: Joaquin Lin RDCS Reading Physician: Arnol Becerra MD Requesting Provider: Ordering Physician: Tristen Norman NP Indication: Post SD Measurements Chambers AV/MV Label Value Normal Value Label Value Normal Value LVOT Vmax 0.62 m/s (0.7m/s - 1.1m/s) AR (ERO) 0.54 cm2 LVOTd 2.1 cm (1.9cm - 2.1cm) AR PHT 0.59 s LVOT VTI 13.5 cm (18cm - 22cm) AR PHT 586 ms LVDd, MM 5.9 cm (4.2cm - 5.9cm) AR PISA Radius 0.9 cm LVDd, 2D 5.9 cm (4.2cm - 5.9cm) AR Reg. Fraction 230 % LVDs, MM 4.4 cm (2cm - 3.8cm) AR Reg. Volume 108 ml LVDs, 2D 4.6 cm (2.1cm - 4cm) AR Vena contracta 0.6 cm IVSd, MM 1 cm (0.6cm - 0.9cm) AR Vmax 3.61 m/s IVSd, 2D 0.8 cm (0.6cm - 1.1cm) AR VTI 200 cm LVPWd, MM 1 cm (0.6cm - 1cm) AV PGmax 5 mmHg LVPWd, 2D 1.1 cm (0.6cm - 1cm) AV PGmean 2 mmHg LVEF, BP 44 % (55% - 70%) AV Vmax 1.14 m/s LVEF, 2D 43 % (54% - 74%) NII (Vmax) 1.9 cm2 LVOT PGmean 1 mmHg NII (VTI) 2.5 cm2 LVOT Vmean 0.44 m/s MV E Vmax 0.76 m/s RVDd, 2D 2.4 cm (1.9cm - 3.8cm) MV A Vmax 0.48 m/s LA Volume, BP 87 ml (18ml - 58ml) MV E/A 1.58 LAESV index, BP 43.5 ml/m2 MV E/E' lateral 7.8 Additional Vessels MV E/E' septal 10.3 (0.45 - 1.25) Patient: ANTONY COOK Study Date: 12/01/2018 Page 1 of 3 07:48 AM Label Value Normal Value MV E' septal 0.07 m/s AoAsc 2.6 cm MV VTI 24.3 cm AoRoot, MM 3.8 cm (2.2cm - 3.7cm) MVA D (continuity eq.) 1.9 cm2 IVC 2.6 cm (1.2cm - 2.3cm) MV PGmax 3 mmHg MV PGmean 1 mmHg MV Nallely 3.4 cm MR Vena Contracta 0.6 cm MR Reg. Volume 31 ml MR Reg. Fraction 14 % MR Vmax 4.55 m/s MR VTI 162 cm MR (ERO) 0.19 cm2 MV E' lateral 0.1 m/s MR PISA Radius 0.6 cm MV E/E' mean 8.94 MR PISA Alias V. 38.5 cm/s MV E' mean 0.08 m/s TV/PV Label Value Normal Value RA Pressure 5 mmHg RVSP 39 mmHg TR Pmax 34 mmHg TR Vmax 2.92 m/s PV PGmax 2 mmHg PV Vmax, Caliper 0.68 m/s (0.6m/s - 0.9m/s) Conclusions Left Ventricle: Moderately reduced systolic left ventricular function. EF range is estimated at 40 % - 45 %. There is inferior to inferoseptal hypokinesis. Mitral Valve: Mild to moderate mitral regurgitation. Aortic Valve: Moderate aortic regurgitation is present. Tricuspid Valve: Mild tricuspid regurgitation. Right Ventricular systolic pressure is measured at 39 mmHg. Findings Left Ventricle: Left ventricle is normal in size. Moderately reduced systolic left ventricular function. The EF is visually estimated to be 40 %. EF range is estimated at 40 % - 45 %. Left ventricle wall thickness is normal. Left ventricular diastolic function parameters are normal. There is inferior to inferoseptal hypokinesis. Right Ventricle: Normal size right ventricle. The RV function appears grossly normal. Left Atrium: Patient: ANTONY COOK Study Date: 12/01/2018 Page 2 of 3 07:48 AM The left atrium is mildly dilated. Right Atrium: The right atrium is normal in size. Mitral Valve: Mild to moderate mitral regurgitation. No mitral valve stenosis. There is mild mitral thickening. Aortic Valve: Moderate aortic regurgitation is present. There is no aortic stenosis. Aortic leaflets exhibit mild calcification. The aortic valve is trileaflet. Tricuspid Valve: Mild tricuspid regurgitation. Right Ventricular systolic pressure is measured at 39 mmHg. Pulmonic Valve: Pulmonic leaflets are normal in appearance and function. No pulmonic valve regurgitation is evident. Aorta: The aorta is normal. The aortic root size in M-mode measures 3.8 cm. The ascending aorta measures 2.6 cm. Aorta Measurements AoRoot, MM is 3.8 cm. IVC: The inferior vena cava is mildly dilated. Pericardium: A small pericardial effusion was identified. Echo findings are not consistent with tamponade physiology. Exam Details Procedure Ordered: Echo Image Quality: Good (No Signature Object) Patient: ANTONY COOK Study Date: 12/01/2018 Page 3 of 3 07:48 AM [id number]
--- NOTE | 2018-12-01 13:48 | ASMTCMCOM ---
CM Note CM Note Notes: Pt is a 83 y/o man admitted for a STEMI. PT has been ordered and awaiting recommendations. Needs are TBD at this time. CM to follow. Plan: TBD Date Signed: 12/01/2018 01:44 PM Electronically Signed By:PAPO Figueroa
--- NOTE | 2018-12-01 14:44 | CPEKG ---
Test Reason : OPEN Blood Pressure : / mmHG Vent. Rate : 071 BPM Atrial Rate : 074 BPM P-R Int : 356 ms QRS Dur : 098 ms QT Int : 381 ms P-R-T Axes : 017 017 109 degrees QTc Int : 414 ms SR with Mobitz I (Wenckebach) block Confirmed by Shad Chen ([id number]) on 12/01/2018 2:43:39 PM Referred By: Arnol Becerra Confirmed By:Shad Chen
--- NOTE | 2018-12-01 15:44 | PDMN ---
Medical Necessity Medical necessity: Change to IP, as of 12/01/18, per MD & MCG M-230; los >2 mn for ongoing management of STEMI; requiring further monitoring & med management; comorbid advanced age
[2018-12-01] MEDS ORDERED: FLUTICASONE NASAL 120 SPRAYS/16 GM MDI EACHNARE PRN (16:54)
[2018-12-01] MEDS: LEVOTHYROXINE 137 MCG TAB PO SCH (17:09)
[2018-12-02] MEDS: LEVOTHYROXINE 137 MCG TAB PO SCH (03:45)
--- NOTE | 2018-12-02 06:49 | PDCARPN ---
Cardiology Progress Note Chief Complaint: SOB Assessment/Plan: Assessment: RCA ACS PCI to RCA reduced EF Plan: 12/01/18 07:50 OOB check echo low dose lasix po no BB/ACEi given low BP start statin continue xarelto and plavix 12/02/18 06:47 stable no CP SOB reduced EF on echo however BP is very soft thus limiting BB/ACEi use continue xarelto/plavix OOB check labs--if no major changes, d/c home today Subjective: stable Reviewed/Discussed With: multidisciplinary team Time Spent with Patient: greater than 25 minutes Time Spent with Patient: Greater than 25 minutes spent on this patients care, greater than 50% of time spent counseling, educating, and coordinating care regarding the above mentioned plan. Objective: Vital Signs (8 Hrs) Temp Pulse Resp BP Pulse Ox 12/02/18 04:00 36.9 C 66 22 H 94/57 L 95 12/01/18 23:57 37.1 C 74 22 H 100/53 L 95 Intake/Output (24 Hrs) 12/01/18 12/02/18 12/03/18 05:59 05:59 05:59 Intake Total 740 Output Total 300 Balance 440 Intake: Oral (ml) 200 IV Infused (ml) 540 Ns 1,000 ml @ 50 mls/hr 540 IV CONT BRAXTON Rx#: [id number] Output: Urine (ml) 300 Urinal 300 Other: Intake Quantity Yes Sufficient Result Diagrams: 12/01/18 04:37 12/01/18 04:37 - Physical Exam Constitutional: no apparent distress Eyes: PERRL Ears, Nose, Mouth, Throat: moist mucous membranes Cardiovascular: regular rate and rhythm Peripheral Pulses: 1+: femoral (R), femoral (L) Respiratory: clear to auscultate bilat Gastrointestinal: normoactive bowel sounds Genitourinary: no suprapubic tenderness Skin: no rashes Musculoskeletal: no muscular tenderness Neurologic: AAOx3 Psychiatric: cooperative ICD10 Worksheet Patient Problems: Problems Problem Status Onset Acute coronary syndrome Acute Anemia Acute Chronic Disease Mgmt/Transitional Care Acute Congestive heart failure Acute
--- NOTE | 2018-12-02 07:18 | GDS ---
[f rep st] DISCHARGE SUMMARY DIAGNOSIS: STEMI. HOSPITAL COURSE: Briefly, this is an 83-year-old male who was admitted with acute shortness of breat h, was found to have ST elevations inferiorly and was found to have a ruptured plaque in his mid RCA which was successfully stented with 2 Synergy stents in the mid RCA and distal RCA. Post procedure p torito has done very well. His shortness of breath has improved. Of note though, however, the patie nt did present to the ER approximately 3 days after symptoms started. He already had Q-wave developm ent. He had inferior wall hypokinesis on his V-gram as well as echocardiogram. Unfortunately, insti tuting beta inge or JOSI inhibitor for the patient is difficult at this point given the patient's s oft blood pressure. He has been in chronic atrial fibrillation , and we will continue him on his home Xarelto as well as a new dose of Plavix. We have instituted Lasix p.o. given his elevate d BNP level and shortness of breath, and check laboratory values this morning. He will be discharged home with a statin, Plavix, Xarelto, as well as Lasix as needed. He will follow up in the office in 1 week's time. /[id number]/MODL
--- NOTE | 2018-12-02 08:26 | CPEKG ---
Test Reason : OPEN Blood Pressure : / mmHG Vent. Rate : 080 BPM Atrial Rate : 080 BPM P-R Int : 257 ms QRS Dur : 117 ms QT Int : 396 ms P-R-T Axes : 268 046 082 degrees QTc Int : 457 ms Atrial fibrillation Nonspecific intraventricular conduction delay Inferior infarct, acute (RCA) Probable RV involvement, suggest recording right precordial leads Confirmed by Quin Martínez ([id number]) on 12/02/2018 8:25:42 AM Referred By: Quin Martínez Confirmed By:Quin Martínez
[2018-12-02] MEDS: RIVAROXABAN 20 MG TAB PO SCH (08:59)
[2018-12-02] MEDS: ATORVASTATIN CALCIUM 10 MG TAB PO SCH (08:59)
[2018-12-02] MEDS ORDERED: TAMSULOSIN HCL 0.4 MG CAP PO SCH (09:00)
[2018-12-02] MEDS: CLOPIDOGREL BISULFATE 75 MG TAB PO SCH (09:00)
[2018-12-02] MEDS: FUROSEMIDE 40 MG TAB PO SCH (09:00)
[2018-12-02] MEDS: PANTOPRAZOLE SODIUM 40 MG TAB PO SCH (09:00)
[2018-12-02 09:19] LABS: PLATELET COUNT 205 10^3/uL (150-400)
--- NOTE | 2018-12-02 10:24 | PDIAF ---
- Diagnosis Code Status: Full Code - Medication Management Discharge Medications: electronically signed and located in the Home Medication List. - Orders Services needed: Home Care, Registered Nurse, Physical Therapy, Occupational Therapy Home Care Face to Face: I certify that this patient was under my care and that I had the required [id number] encounter meeting the encounter requirements on the discharge day. My findings support the fact that the patient is homebound as defined in Home Care Face to Face Continued: CMS Chapter 7 Medicare Benefits Manual 30.1.1 , The condition of the patient is such that there exists a normal inability to leave home and consequently, leaving home would require a considerable and taxing effort. Diet Recommendation: cardiac -low fat low salt Additional Instructions: Groin precaution: 1. No lifting more the 5-10 pounds for 1 week 2. May shower but no bath, hot tubs or swimming pool (no stand water submersion ) until all insertion site are healed 3. Keep band aid on insertion site if clothing causes pressure on the insertion site 4. Watch for sign of infection (fever, redness, swelling, drainage, night sweat or chills) Call Dr Rodriguez's office immediately if you have any of these symptoms [phone]. 5. If you notice a large amount of bleeding at site, hold press over it and call 911 6. No strenuous exercise for 2 weeks 7. Take Plavix 75 mg once daily 8. Continue Xarelto 9. Take Lasix 20 mg once daily 10. Incentive spirometer every hour while awake the next 2 days. 11. Daily weights, please call [facility] if you gain more than 2 lb in a day or 5 lb in a week. 12. Repeated blood work to be done on December 07. 13. Follow up with Dr. Rodriguez on December 09, 2018 at 2:30 pm 14. Call [facility] or return to the hospital for any problems or concerns. [phone] - Labs/Radiology BMP Date: 12/07/18 (Send results to [facility]) - Follow Up Care Current Providers and Referrals: Karen Campos MD [Primary Care Provider] - As per Instructions René Rodriguez MD [Medical Doctor] - (Follow up with Dr. Rodriguez on December 09, 2018 at 2:30 pm)
--- NOTE | 2018-12-02 10:33 | ASMTDCNOTE ---
Case Management Discharge Discharge Order Complete? Answers: Yes Patient to Obtain Answers: Independently Medications Transportation Arranged Answers: Family/Friends EMTALA Complete Answers: No Case Management Transport Answers: No Form Complete Faxed Final Orders Answers: Yes Agency/Facility Transfer Answers: Yes Report Printed & Faxed to Receiving Agency Family Notified Answers: No Discharge Comments Notes: Pts case discussed w/ Tristen, ARCELIA. Pt is being d/c'd today. PT is recommending HC. CM met w/ pt and he is agreeable to HC services. Referral made to [facility]. [facility] is able to accept. CM confirmed pts address and phone number. Pts PCP is Dr. Campos. CM available for changes. Plan: [facility]; PT, RN Date Signed: 12/02/2018 10:32 AM Electronically Signed By:PAPO Figueroa
--- NOTE | 2018-12-02 11:13 | ASDISCHSUM ---
Discharge Information Plan Status:Home with Home Health Medically Cleared to Leave:12/02/2018 Discharge Date:12/02/2018 CM D/C Disposition: ADT D/C Disposition:Home, Routine, Self-Care Projected Discharge Date:12/02/2018 11:00 AM Transportation at D/C: Discharge Delay Reason: Follow-Up Date:12/02/2018 11:00 AM Discharge Slot: Final Diagnosis: Placement Information Referral Type:*Home Health Care Services Referral ID:[facility]-[id number] Provider Name:[facility] Address 1:[address] Address 2: City:[place] Selection Factors: State:[place] Patient Contact Information Contact Name:CATRACHITO Relationship: Address:[address]: City:[place] Alternate Phone: State/Zip Code:[place] [address] Email: Financial Information Financial Class:Medicare Primary Plan Desc:MEDICARE INPATIENT Primary Plan Number:[id number] Secondary Plan Desc:VANES[employer] PPO [employer] [employer] Secondary Plan Number:[id number] Assessment Information LACE LACE Length of stay for Answers: 2 days current admission Acuity / Level of Answers: Yes Care: Did the patient have an inpatient admission? Comorbidities - select Answers: Other Notes: AFib; HTN all that apply # of Emergency department Answers: 1-2 visits in the last 6 months Score: 7 Date Signed: 12/02/2018 11:12 AM Electronically Signed By:PAPO Figueroa [facility] CM Progress Note CM Note CM Note Notes: Pt is a 83 y/o man admitted for a STEMI. PT has been ordered and awaiting recommendations. Needs are TBD at this time. CM to follow. Plan: TBD Date Signed: 12/01/2018 01:44 PM Electronically Signed By:PAPO Figueroa Case Management Discharge Plan Note Case Management Discharge Discharge Order Complete? Answers: Yes Patient to Obtain Answers: Independently Medications Transportation Arranged Answers: Family/Friends EMTALA Complete Answers: No Case Management Transport Answers: No Form Complete Faxed Final Orders Answers: Yes Agency/Facility Transfer Answers: Yes Report Printed & Faxed to Receiving Agency Family Notified Answers: No Discharge Comments Notes: Pts case discussed w/ ARCELIA Ramon. Pt is being d/c'd today. PT is recommending HC. CM met w/ pt and he is agreeable to HC services. Referral made to [facility]. [facility] is able to accept. CM confirmed pts address and phone number. Pts PCP is Dr. Campos. CM available for changes. Plan: [facility]; PT, RN Date Signed: 12/02/2018 10:32 AM Electronically Signed By:PAPO Figueroa Intervention Information Intervention Type:*ANDERSON-Signed Date of Service:12/01/2018 10:28 AM Patient Type:Observation Staff Member:Krissy Saleh Hours: Discipline: Severity: Comment:
[2018-12-02 12:34] VITALS: BP 118/63
== END 2018-12-02 13:24 | disposition home health service (06) | DRG 247 ==
LOC: F2N 16:14 → F2W 16:55 → OBSVTOIN 12-01 15:31
PROVIDERS: ADMIT Internal Medicine Cardiovascular Disease; ATTEND Internal Medicine Cardiovascular Disease
DX: I21.09 ST elevation (STEMI) myocardial infarction involving other coronary artery of anterior wall (principal); I48.0 Paroxysmal atrial fibrillation; E03.9 Hypothyroidism, unspecified
CPT/HCPCS: 84484-ER; 97161-GP; C1725; C1760; C1769; C1874; C1887; C9606; G0378; J0461; J0583

== ENCOUNTER → 2018-12-03 | Outpatient (CLI) | payer OTHER | LOC: BMCIMAGING 08:40 | PROVIDERS: ATTEND Orthopaedic Surgery | DX: Z09 Encounter for follow-up examination after completed treatment for conditions other than malignant neoplasm (principal); Z96.651 Presence of right artificial knee joint ==

== ENCOUNTER → 2018-12-16 | Outpatient (CLI) | payer OTHER | LOC: FIMAGING 14:52 | PROVIDERS: ATTEND Internal Medicine Pulmonary Disease | DX: I48.91 Unspecified atrial fibrillation (principal); I77.810 Thoracic aortic ectasia ==